=== PATIENT | male | born 1935 | race Caucasian/White ===

== ENCOUNTER → 2024-02-28 09:41 | Outpatient (REF) | payer OTHER, SELFPAY ==
[2024-02-28 11:08] LABS: ALT (SGPT) 19 U/L (0-50); AST (SGOT) 34 U/L (17-59); Albumin 4.1 g/dl (3.5-5.0); Alkaline Phosphatase 78 U/L (38-126); Blood Urea Nitrogen 35 mg/dl (9-20); Calcium 9.1 mg/dl (8.4-10.2); Carbon Dioxide 33 mmol/L (22-30); Chloride 100 mmol/L (98-107); Glucose 104 mg/dl (70-99); Sodium 141 mmol/L (135-145); Total Bilirubin 0.7 mg/dl (0.2-1.3); Total Protein 8.6 g/dl (6.3-8.2)
== END ==
LOC: REG 09:41
PROVIDERS: ATTENDING PHYSICIAN Family Medicine
DX: Z95.810 Presence of automatic (implantable) cardiac defibrillator (principal); I25.10 Atherosclerotic heart disease of native coronary artery without angina pectoris; I10 Essential (primary) hypertension
CPT/HCPCS: 36415; 80053

== ENCOUNTER → 2024-06-07 07:47 | Outpatient (REF) | payer OTHER, SELFPAY ==
[2024-06-07 09:00] LABS: % Basophils 0.5 % (0-2); % Eosinophils 3.6 % (0-6); % Immature Granulocytes 0.2 % (0-0.5); % Monocytes 7.7 % (1.7-9.3); Absolute Eosinophils 0.2 10^3/uL (0-0.7); Absolute Lymphocytes 1.2 10^3/uL (1.2-3.4); Absolute Monocytes 0.5 10^3/uL (0.1-0.6); Absolute Neutrophils 3.9 10^3/uL (1.4-6.5); Hematocrit 42.8 % (39.0-52.0); Hemoglobin 13.9 g/dL (13.0-18.0); Mean Corp Hgb Conc. 32.5 g/dL (33.0-37.0); Mean Corpuscular Hgb 31.1 pg (27.0-31.0); Mean Corpuscular Volume 95.7 fL (80.0-94.0); Mean Platelet Volume 9.8 fL (7.4-10.4); Nucleated Red Blood Cells % 0 % (-); Platelet Count 206 10^3/uL (130-400); Red Blood Cell Count 4.47 10^6/uL (4.70-6.10); Red Cell Dist. Width 12.6 % (11.5-14.5); White Blood Cell Count 5.8 10^3/uL (4.8-10.8)
[2024-06-07 09:23] LABS: Albumin 4.1 g/dl (3.5-5.0); Blood Urea Nitrogen 39 mg/dl (9-20); Calcium 9.3 mg/dl (8.4-10.2); Carbon Dioxide 34 mmol/L (22-30); Chloride 101 mmol/L (98-107); Glucose 95 mg/dl (70-99); Phosphorus 3.5 mg/dl (2.5-4.5); Potassium 4.3 mmol/L (3.5-5.1); Sodium 143 mmol/L (135-145); eGFR > 60.00
[2024-06-07 09:57] LABS: TSH Reflex To Free T4 1.81 uIU/ml (0.47-4.68)
== END ==
LOC: REG 07:47
PROVIDERS: ATTENDING PHYSICIAN Internal Medicine Cardiovascular Disease; FAMILY PHYSICIAN Family Medicine
DX: I48.0 Paroxysmal atrial fibrillation (principal); R09.89 Other specified symptoms and signs involving the circulatory and respiratory systems; R63.4 Abnormal weight loss; R63.0 Anorexia
CPT/HCPCS: 36415; 80069; 84443; 85025

== ENCOUNTER → 2024-06-10 13:02 | Outpatient (REF) | payer OTHER, SELFPAY | LOC: RAD 13:02 | PROVIDERS: ATTENDING PHYSICIAN Internal Medicine Cardiovascular Disease; FAMILY PHYSICIAN Family Medicine | DX: I48.0 Paroxysmal atrial fibrillation (principal); R09.89 Other specified symptoms and signs involving the circulatory and respiratory systems; R63.4 Abnormal weight loss; R63.0 Anorexia | CPT/HCPCS: 74177; Q9967 ==

== ENCOUNTER 2024-07-09 09:50 | Inpatient (IN) | payer OTHER, SELFPAY ==
[2024-07-03 10:50] LABS: INR 1.14; PT 14.6 Sec (11.4-14.6)
[2024-07-03 10:51] LABS: APTT 34.8 Sec (23.4-35.0)
[2024-07-03 11:18] LABS: % Basophils 0.5 % (0-2); % Eosinophils 2.8 % (0-6); % Immature Granulocytes 0.5 % (0-0.5); % Lymphocytes 18.5 % (20.5-51.1); % Monocytes 7.8 % (1.7-9.3); % Neutrophils 69.9 % (42.2-75.2); Absolute Eosinophils 0.2 10^3/uL (0-0.7); Absolute Lymphocytes 1.2 10^3/uL (1.2-3.4); Absolute Monocytes 0.5 10^3/uL (0.1-0.6); Absolute Neutrophils 4.5 10^3/uL (1.4-6.5); Hematocrit 43.6 % (39.0-52.0); Hemoglobin 14.1 g/dL (13.0-18.0); Mean Corp Hgb Conc. 32.3 g/dL (33.0-37.0); Mean Corpuscular Hgb 30.8 pg (27.0-31.0); Mean Corpuscular Volume 95.2 fL (80.0-94.0); Mean Platelet Volume 9.8 fL (7.4-10.4); Nucleated Red Blood Cells % 0 % (-); Platelet Count 203 10^3/uL (130-400); Red Blood Cell Count 4.58 10^6/uL (4.70-6.10); Red Cell Dist. Width 12.3 % (11.5-14.5); White Blood Cell Count 6.4 10^3/uL (4.8-10.8)
[2024-07-04 10:32] VITALS: BMI 18.1
[2024-07-04 11:11] LABS: Blood Urea Nitrogen 40 mg/dl (9-20); Carbon Dioxide 38 mmol/L (22-30); Chloride 96 mmol/L (98-107); Estimated Creatinine Clearance 35 ml/min; Glucose 98 mg/dl (70-99); Potassium 4.7 mmol/L (3.5-5.1); Sodium 141 mmol/L (135-145); eGFR 58.89
[2024-07-09] VITALS (9 sets, daily range): BP systolic 95–125; BP diastolic 37–65; BMI 18.0
[2024-07-09] MEDS: BACTROBAN NASAL 1 GRAM NASAL (10:44)
[2024-07-09] MEDS: NSS 500 IV (10:45)
[2024-07-09] MEDS: PERIDEX 0.12% ORAL RINSE 15 ML PO (10:45)
[2024-07-09 10:46] LABS: Glucose - Point of Care 88 mg/dl (70-99)
--- NOTE | 2024-07-09 13:00 | W.SUR.PREOP ---
Pre-Operative Surgical Note
-
I have examined this patient prior to the performance of the scheduled procedure.
The patient's condition is unchanged from the time of the current History and
Physical and the patient is able to undergo the scheduled procedure.
--- NOTE | 2024-07-09 16:25 | W.SUR.POST ---
Surgical Immediate Post Op
Note
Pre Op Diagnosis: AAA
Post Op Diagnosis: AAA
Procedure Performed: EVAR (alto)
Primary Surgeon: Artis
Assist: Owen MENDIOLA
Anesthesia: general
Estimated Blood Loss: 50cc
Fluids: see anesthesia flow sheet
Drains/Shunts: none
Specimens/Cultures: none
Doppler/Duplex/Angio (Y/N): Y
Complications: none
Operative Findings: No endoleak
--- NOTE | 2024-07-09 16:45 | OR.RPT ---
Operative Report
Operative Report
PROCEDURE DATE: 07/09/2024
Preoperative diagnosis: 5.8 cm infrarenal abdominal aortic aneurysm.
Postoperative diagnosis: Same
Procedure:
1. Endovascular repair of infrarenal abdominal aortic aneurysm with bifurcated modular endoprosthesis with bilateral iliac limb extension (Endologix [place] 23 mm main body, right iliac limb 10 mm x 160 mm extension, left iliac limb overlapping 16mm
by 100 mm and 16 mm x 80 mm extensions).
2. Percutaneous bilateral common femoral artery closure.
3. Supervision and interpretation.
Surgeon: Artis
Tube Handler: Owen, required for all aspects of procedure including assistance with traction/countertraction, wire manipulation and assistance.
Complications: None
Anesthesia: General
Indications for procedure:
5.8 cm large infrarenal abdominal aortic aneurysm. Suitable anatomy for endovascular aneurysm repair. Risk/benefits/alternatives also discussed. Patient understood all wish to proceed.
Description of procedure:
Patient was identified brought to the operating room placed on the table in supine position. After the adequate administration of anesthesia and perioperative antibiotics he was prepped and draped in the standard surgical fashion. A standard
preoperative timeout was undertaken and everybody was in agreement the plan. Bilateral common femoral artery access was obtained under direct duplex ultrasound guidance. 6 [place] sheaths were placed over 0.035 inch wires. Notes because of slight
difficulty and wire advancement in both sides, especially right side, I had performed retrograde angiogram through the sheath (micropuncture sheath) to confirm no evidence of dissection prior to 6 [place] sheath advancement. Blunt dissection was
undertaken with hemostats to facilitate percutaneous suture delivery. Next, using the PerClose suture system, percutaneous sutures were deployed at the 10:00 and 2 o'clock position bilaterally in the standard fashion. Suture strands were tagged
outside the skin. We exchanged for 11 [place] sheaths bilaterally. Patient was given 5000 units of intravenous heparin. Next using a [place] catheter, I guided wires into the supraceliac aorta from bilateral access sites. On the right side, pigtail
catheter was advanced into the juxtarenal aorta and aortogram pelvic angiogram was obtained. Gil were made to identify the bilateral renal arteries on the screen. On the left side I now exchanged for a AmwareerDogSpot wire through which the
Endologix [place] main body graft was advanced ([id number]). Device was advanced until the implant radiopaque markers were about 1 cm proximal to the intended landing site. Note, the device had been loaded such that the contralateral gate would be
intentionally crossed based on the wire lay (and therefore when loaded on the wire, the device delivery system was loaded with the green facing laterally). Next we unsheathed by retracting the delivery system outer sheath until the sheath
retraction knob met the handle. The first segment (mid crown) was then deployed by releasing the for stent release knob and pulling the wire. 5 cc of 4-1 saline to contrast was injected through the balloon port to inflate the mid crown segment.
The balloon was then deflated. I then confirmed that there was no parallax by aligning the top radiopaque markers. Magnified power injection aortogram was again performed and renal artery positioning was again marked on the screen. I then moved
the graft downward such that the fabric was to line up with the inferior edge of the renal artery origin (the left renal artery was the lower renal artery). The pigtail catheter was then withdrawn downward. The remainder of the proximal stent was
then deployed by releasing the second knob and pulling the wire out. Next, the polymer was prepared. Once this was ready, the [place] Was then removed and the polymer syringe was secured onto the port. The autoinjection was then locked onto
the syringe and the feeling of the polymer began. The timer was started for 14 minutes. During this time, using a flap angled hydrophilic wire through the right sided sheath access, and using a angled catheter (Magalie 4), I was able to cannulate
the contralateral gate successfully and then advance my wire into the supraceliac aorta. I then advanced a pigtail catheter through. I then pulled the wire back and confirmed the catheter was able to spin and the main body the graft and above the
main body of the graft confirming that I was in the true lumen of the contralateral gate. As noted earlier the contralateral limbs had been crossed intentionally for deployment. 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
(confirmed both on CT scan and angiography), we had elected to extend our iliac limb down into the external iliac artery. Therefore I did not need to perform any additional angiography/measurement. I now exchanged for a Amplatz wire.
Prior to advancing the contralateral limb, I turned my attention to the proximal polymer rings as the 14 minutes had elapsed. The third release knob was turned and the wire withdrawn to complete deployment. The retraction knob was withdrawn
slightly to disengage the delivery system from the stent graft, and then was advanced forward. It was advanced such that the markers on the balloon were centered around the proximal rings. I then balloon molded the ring segment into place.
I then loaded the 10 mm x 160 mm iliac limb extension ([id number]) onto the Amplatz wire through the right sided 11 [place] sheath. This was advanced such that the proximal markers aligned with the proximal half ring of the graft. Next I
retracted the sheath to deploy the iliac limb. Satisfied with the positioning, I turned my attention to the ipsilateral limb. The delivery system was withdrawn out of the left groin and I advanced up a 16 x 100 mm iliac limb extension
([id number]). This was appropriately positioned such that the proximal markers were aligned with the proximal half ring of the graft. It was now in sheath. Of note prior to unsheathed thing it and advancing this all up, the retrograde angiogram
was performed and the hypogastric/iliac bifurcation were marked on the screen. Care was taken to avoid covering these when deploying the stent graft. The iliac limb was noted to be slightly short by a couple centimeters of the iliac bifurcation.
At this point, we used 12 mm angioplasty balloons to simultaneously balloon bilateral iliac limbs proximally, and then withdrawing them and ballooning the entirety of the iliac limbs as we did so. Completion angiogram now was performed with power
injection via a pigtail catheter. This demonstrated good positioning proximally with good filling of the renal arteries bilaterally. No evidence of type I or type III endoleak was noted. There is a late type II endoleak from the lumbars. There
was no evidence of a type Ib endoleak, however our seal zone in the left common iliac artery was relatively short. Therefore I elected to extend using a 16 mm x 80 mm iliac limb extension ([id number]). This was extended to just short of the iliac
bifurcation. The iliac bifurcation had been marked on the screen, and care was taken avoid coverage. Retrograde angiogram through the sheath demonstrated good filling of both the external and the internal iliac artery.
Next I exchanged my pigtail catheter back for a Amplatz wire. Next, I sequentially removed the sheath while cinching down the percutaneous sutures. This was initially done on the right side and then on the left. Once hemostasis was noted the wire
was then withdrawn, the knot was tightened with a knot pusher. Hemostasis was confirmed. The knot was then locked and the suture strands trimmed. This was done as noted on the right initially and then on the left. Protamine was given to reverse
the heparin. Hemostasis was fully achieved bilateral groins with good femoral pulses bilaterally. The small skin incisions were then closed with 4-0 Monocryl subcuticular stitch and Dermabond was applied. Patient tolerated procedure well. He had
palpable DP and PT pulses bilaterally upon completion.
--- NOTE | 2024-07-09 16:50 | CON.INTV ---
Consultation
Consultation Request
Date/Time Consultation Requested: 07/09/2024
Date/Time Consultation Performed: 07/09/2024 - 1620
Requesting Provider: MAURY Carroll
Performing Provider: Luis Alberto Chun MD
Reason for Consultation: s/p EVAR
Medical History
-
Chief Complaint: Elective EVAR
History of Present Illness:
88-year-old male former tobacco smoker with a past medical history of COPD, chronic HFrEF/ICM with history of VT s/p dual-chamber ICD, paroxysmal A-fib on Eliquis, CAD s/p ID, history of LV thrombus, history hematuria, ophthalmic herpes zoster, BPH,
history of skin cancer s/p Mohs procedure, migraine headaches and restrictive lung defect who presents with endovascular abdominal aortic aneurysm repair. Patient has a known infrarenal abdominal aortic aneurysm that is 5.8 cm largest seen on
recent CT abdomen/pelvis from 06/10/2024. He is known to vascular surgery with Dr. Wisdom, last office visit on 06/17/2024. Endovascular repair of his AAA was discussed including its risks and benefits. Patient agreed to procedure and today he
underwent endovascular repair of infrarenal abdominal aortic aneurysm with bifurcated modular endoprosthesis with bilateral iliac limb extension. There were no immediate complications and he was transferred to the ICU for further care, with
critical care services consulted for additional management/recommendations.
Patient was seen and evaluated at bedside. Patient's and daughter at bedside. All questions were answered. Currently on 2 L/min nasal cannula saturating 90%, heart rate 79, BP via right radial A-line 130/50, BP via NIBP: 114/55. He has no
specific complaints. Denies chest pain, SOB, SERRA, abdominal pain, nausea, diarrhea, fevers or chills.
Of note, patient follows with us in the [facility] office with Dr. Sanchez, last office visit on 04/02/2024. Patient follows with us for COPD on Stiolto Respimat with prn DuoNebs, with 2 L/min at bedtime. He had been on ICS in the past but then developed
thrush. Also has chronic rhinitis on Flonase, azelastine and was advised to use nasal saline spray. ENT evaluation recommended however he declined. He has completed cardiac rehab in the past given his history of chronic systolic heart failure.
He follows with Dr. Sr. He does report chronic shortness of breath without phlegm production. 6MWT performed during last office visit shows aristides SpO2 96% and no need for home oxygen. Last full PFT performed in October 2021 showing severe
COPD with significant bronchodilator response, mild restrictive lung defect (T%), and severely reduced gas exchange capacity which was moderately reduced when accounting for alveolar volume involving gas exchange (DLco: 26%; DLco/VA: 45%).
Last perimetry performed in April 2023 showed very severe COPD with post-BD FEV1: 28% predicted/0.7 L, and severe restrictive lung defect with post-BD FVC: 42% predicted/1.53 L.
PMHx: COPD, mild restrictive lung defect, history of skin cancer, BPH, diverticulosis, migraine headaches, history of VT s/p [id number], chronic HFrEF/ICM, paroxysmal A-fib on Eliquis, CAD s/p ID (1983), dyslipidemia, history of LV thrombus
(Dx in 08/2016), ophthalmic herpes zoster, gout, history of hematuria, chronic urinary retention with chronic Gee
PSHx: Sinus surgery, Mohs surgery, AICD implantation, bilateral cataract extractions, repair of right tarsal eyelid (2001), coronary cath, cystoscopy with clot evacuation with resection of prostate median lobe (2016)
Past Medical History
Past Medical History: Other (Above as per HPI)
Past Surgical History: Other (Above as per HPI)
Social History
Tobacco: Former Smoker (Quit in 2003; previously 0.5PPD x 50 years)
Alcohol: None
Drug: None
Personal:
Living: With Family
Family History
Family History: CAD (Father + mother) and Other (Mother: History of CHF)
Allergies / Home Medications
Allergies
Allergy/AdvReac Type Severity Reaction Status Date / Time
Sulfa (Sulfonamide Allergy Nausea Verified 07/02/24 09:04
Antibiotics)
Home Medications
�Medication �Instructions �Recorded �Confirmed �Last Taken �Type
albuterol sulfate 2.5 mg/3 mL 2.5 mg inhalation R BID 03/07/18 07/09/24 07/09/24 06:00 History
(0.083 %) solution for nebulization Lung/Breathing Issues
ascorbic acid (vitamin C) 500 mg 1,000 mg PO DAILY Supplement 03/07/18 07/09/24 07/08/24 06:00 History
tablet (Vitamin C)
dutasteride 0.5 mg capsule 0.5 mg PO DAILY Urinary Issue 03/07/18 07/09/24 07/08/24 06:00 History
peg 400-propylene glycol (PF) 0.4 1 drp BOTH EYES TID Eye Condition 03/07/18 07/09/24 07/08/24 06:00 History
%-0.3 % eye drops in a dropperette
(Systane (PF))
tiotropium 2.5 mcg-olodaterol 2.5 1 puff inhalation R DAILY PRN 03/07/18 07/09/24 07/08/24 12:00 History
mcg/actuation mist for inhalation Lung/Breathing Issues
(Stiolto Respimat)
simvastatin 40 mg tablet 40 mg PO QPM ##30 04/05/18 07/09/24 07/08/24 18:00 Rx
metoprolol succinate 50 mg 25 mg PO QPM Blood Pressure 10/06/19 07/09/24 07/08/24 18:00 History
tablet,extended release 24 hr
echinacea 400 mg capsule 400 mg PO DAILY Supplement 06/22/23 07/09/24 07/08/24 06:00 History
fluticasone propionate 50 1 spray intranasal DAILY PRN 06/22/23 07/09/24 07/08/24 12:00 History
mcg/actuation nasal Allergies
spray,suspension
apixaban 2.5 mg tablet (Eliquis) 2.5 mg PO BID #60 tabs 06/25/23 07/09/24 07/02/24 18:00 Rx
dofetilide 250 mcg capsule 250 mcg PO Q12 #60 caps 06/25/23 07/09/24 07/08/24 18:00 Rx
furosemide 40 mg tablet 40 mg PO DAILY #30 tabs 06/25/23 07/09/24 07/08/24 06:00 Rx
aspirin 81 mg capsule 81 mg PO DAILY 07/02/24 07/09/24 07/08/24 06:00 History
lactobacillus combination no.4 3 3,000 mmu cells PO QPM 07/02/24 07/09/24 07/08/24 16:30 History
billion cell capsule (Probiotic)
polyethylene glycol 3350 17 gram 17 g PO DAILY 07/02/24 07/09/24 07/08/24 06:00 History
oral powder packet (Miralax)
Review of Systems
-
History Source: Patient
All other systems: Negative unless noted
Vitals / Labs / Diagnostic Testing
Vital Signs
Temp Pulse Resp BP Pulse Ox
97.2 F 74 20 124/62 99
07/09/24 16:45 07/09/24 17:45 07/09/24 17:45 07/09/24 17:45 07/09/24 17:45
Lab Data
07/09/24 17:06
07/09/24 17:06
Diagnostic Testing:
Physical Exam
-
HEENT: Normocephalic, Anicteric and Other (Conjunctival injection bilaterally)
Cardiovascular: Irregular Rhythm (Irregularly irregular) and Other (Normal heart rate)
Respiratory: Wheeze (negative), Rales (negative), Rhonchi (negative), Accessory Resp Muscle Use (negative) and Other (Grossly diminished breath sounds bilaterally)
GI: Soft, Non Distended, Non Tender and Normal Bowel Sounds
Neurology: AO x 3 and Tremors (negative)
Skin: Warm and Dry
General: Respiratory Distress (negative), Comfortable, Fever (negative), Chills (negative), Sweats (negative) and Other (Elderly male, in NAD, chronic gee in place)
Assessment
-
Assessment: 88-year-old male former tobacco smoker with a past medical history of COPD, chronic HFrEF/ICM with history of VT s/p dual-chamber ICD, paroxysmal A-fib on Eliquis, CAD s/p ID, history of LV thrombus, history hematuria, ophthalmic herpes
zoster, BPH, history of skin cancer s/p Mohs procedure, migraine headaches and restrictive lung defect who presents with endovascular abdominal aortic aneurysm repair. Patient has a known infrarenal abdominal aortic aneurysm that is 5.8 cm largest
seen on recent CT abdomen/pelvis from 06/10/2024. He is known to vascular surgery with Dr. Wisdom, last office visit on 06/17/2024. Endovascular repair of his AAA was discussed including its risks and benefits. Patient agreed to procedure and today he
underwent endovascular repair of infrarenal abdominal aortic aneurysm with bifurcated modular endoprosthesis with bilateral iliac limb extension. There were no immediate complications and he was transferred to the ICU for further care, with
critical care services consulted for additional management/recommendations.
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
of LV thrombus (Dx in 08/2016), ophthalmic herpes zoster, gout, history of hematuria
Impression:
#5.8 cm infrarenal abdominal aortic aneurysm s/p endovascular repair (EVAR) with bifurcated modular endoprosthesis with bilateral iliac limb extension (POD #0)
#Anemia (baseline Hb 13-14g/dL)
#Very severe COPD (post-BD FEV1: 28% predicted/0.7 L via spirometry from 04/2023)
#Severe restrictive lung defect (post-BD FVC: 42% predicted/1.53 L via spirometry from 04/2023)
#History of recurrent UTI
#Chronic HFrEF/ICM s/p dual-chamber ICD
#History of VT
#Paroxysmal A-fib on Eliquis
#CAD with history of ID (1983)
#History of LV thrombus
#Chronic urinary retention with chronic indwelling urethral catheter (follows with Dr. Lira as outpatient, declined TURP in past due to cardiac risk)
Plan:
Postoperative surgical intensive care unit monitoring
Supplemental oxygen as needed to maintain SpO2 88-95%
prn nebulized bronchodilators
He takes Stiolto at home --> continue spiriva and Striverdi while inpatient
Incentive spirometry encouraged 10x per hour for at least 4 hrs a day
Aspiration precautions
Pain control
Neuro and vascular checks per protocol
Maintain MAP>65
Replete electrolytes with K>4, Mg>2
Maintain euglycemia with goal BG 140-180
Vascular surgery following-correspondence and operative notes reviewed
Transfuse blood products as needed to keep Hb>7g/dL, and plt>50k (given post-operative status)
DVT prophylaxis
Early nutrition
Continue chronic Gee � last changed by Dr. Lira in office on 06/18/2024
Early mobilization
Patient will continue to follow-up with our office - last pulmonary office visit on 04/02/2024 Dr. Sanchez - next visit in 09/2024.
Critical care statement: A total of 37 minutes of critical care time was provided for this patient today. This includes management of unstable vital signs, evaluation of the patient at bedside, reviewing the patient's pertinent medical records
including radiographs, microbiology, laboratory evaluations, and discussion with primary team, consultants, pharmacy, nutrition, physical therapy, case management, charge nurse, critical care nursing, and respiratory therapy.
[2024-07-09] MEDS: NSS 1000 IV ×2 (17:16→22:30)
[2024-07-09 17:19] LABS: Hematocrit 36.5 % (39.0-52.0); Hemoglobin 12.2 g/dL (13.0-18.0); Mean Corp Hgb Conc. 33.4 g/dL (33.0-37.0); Mean Corpuscular Hgb 31.4 pg (27.0-31.0); Mean Corpuscular Volume 94.1 fL (80.0-94.0); Mean Platelet Volume 9.2 fL (7.4-10.4); Platelet Count 162 10^3/uL (130-400); Red Blood Cell Count 3.88 10^6/uL (4.70-6.10); Red Cell Dist. Width 12.3 % (11.5-14.5); White Blood Cell Count 8.7 10^3/uL (4.8-10.8)
--- NOTE | 2024-07-09 17:20 | SUR.PHASEI ---
Dr. Wisdom notified pt with B/L feet with dusky toes upon PACU admission. Dr. Wisdom at pt bedside to evaluate, Danny rogel ordered to B/L lower extremities and applied to pt as ordered.
[2024-07-09 17:38] LABS: Blood Urea Nitrogen 32 mg/dl (9-20); Calcium 8.3 mg/dl (8.4-10.2); Carbon Dioxide 30 mmol/L (22-30); Chloride 104 mmol/L (98-107); Estimated Creatinine Clearance 46 ml/min; Glucose 105 mg/dl (70-99); Potassium 4.6 mmol/L (3.5-5.1); Sodium 143 mmol/L (135-145); eGFR > 60.00
--- NOTE | 2024-07-09 18:34 | PTCARENOTE ---
Addendum entered by Shawna Yao RN 07/09/24 19:22:
Pt's daughter upon seeing discoloration of pt's bilateral feet/toes stated 'Oh, that looks better than what it did before'
Original Note:
Pt received from PACU into Rm 3370 at 1755. Pt awake and alert, Ox3, denies c/o pain although reports 'little' discomfort in bilateral groin sites- rates 1/10. Bilateral groin soft and flat to palpation. Exofin intact. Bottom of both feet and tips
of toes noted to be dusky in color- unchanged in appearance and Dr Wisdom aware per CAR DELIVERER. Danny Hugger in use to bilateral LE. Bilateral DP/PT pulses normal to palpation. Feet warm to touch. Pt noted to have red rimmed eyes that per CAR DELIVERER pt
presented w/ at preop time. Pt received from PACU on O2 at 2l/min w/ POx 97%. Pt reports that he uses O2 at 2l/min overnight at home. Breath sounds diminished and clear bilaterally. Denies SOB. Abdomen soft, flat and w/ normoactive bowel sounds. Pt
denies nausea and taking sips of water. Pt received w/ Rt radial Martin in place- leveled/zero balanced and transduced waveform WNL. IVF of NS @ 80ml/hr per order via peripheral IV site. Pt assisted in ordering dinner tray. Family to visit at
bedside- and daughter updated on pt's present condition/plan of care. Admission assessment completed as documented. Orientation provided to pt on surroundings and use of call vidales. Safe environment maintained.
[2024-07-09] MEDS: VENTOLIN NEBULES 2.5 MG INH (19:59)
--- NOTE | 2024-07-09 20:00 | PTCARENOTE ---
Received patient AAOx3, following commands, denying pain. Normal sinus 70s-80s with a first degree and occasional PVCs. Right radial chen zeroed, flushed, and leveled. BP 100s/40s-50s, normothermic. Q1H neurovascular checks, palpable radial, DP,
and PT pulses. On 2 liters nasal cannula, lung sounds diminished throughout. Abdomen soft, flat, hypoactive bowel sounds. Chronic gee on admission, draining yellow urine. Feet dusky/purple, no change from previous assessment, bairhugger remains
on. Bilateral groin incision sites, surgiglue intact, approximated, no drainage or ecchymosis. NSS ongoing per order. Call vidales within reach, able to make needs known.
[2024-07-09] MEDS: TIKOSYN 250 MCG PO (20:21)
[2024-07-09] MEDS: REFRESH EYE DROPS (PF) BOTH EYES (20:21)
[2024-07-09] MEDS: VISBIOME 1 CAP PO (20:22)
[2024-07-09] MEDS: LIPITOR 20 MG PO (20:22)
[2024-07-09] MEDS: TOPROL XL 25 MG PO (20:22)
[2024-07-09] MEDS: HEPARIN 5000 UNITS SC (20:23)
[2024-07-09] MEDS: REFRESH EYE DROPS (PF) 1 DROPS BOTH EYES (22:02)
[2024-07-09] MEDS: NSS 250 IV (22:13)
[2024-07-10] VITALS (9 sets, daily range): BP systolic 84–120; BP diastolic 34–57; BMI 18.9
--- NOTE | 2024-07-10 00:20 | PTCARENOTE ---
Patients BP 80s-90s/30s-50s, CLOTH SPONGER aware and discussed with vascular. 250 ml NSS bolus given, BP improved to 100s/40s. Otherwise patient assessment unchanged from previous, call vidales within reach.
--- NOTE | 2024-07-10 05:12 | PTCARENOTE ---
Patient assessment unchanged from previous, mouth care done, gee care done, labs sent.
[2024-07-10 05:16] LABS: Hematocrit 35.3 % (39.0-52.0); Hemoglobin 11.5 g/dL (13.0-18.0); Mean Corp Hgb Conc. 32.6 g/dL (33.0-37.0); Mean Corpuscular Hgb 31.8 pg (27.0-31.0); Mean Corpuscular Volume 97.5 fL (80.0-94.0); Mean Platelet Volume 9.5 fL (7.4-10.4); Platelet Count 153 10^3/uL (130-400); Red Blood Cell Count 3.62 10^6/uL (4.70-6.10); Red Cell Dist. Width 12.2 % (11.5-14.5); White Blood Cell Count 6.2 10^3/uL (4.8-10.8)
[2024-07-10 05:26] LABS: INR 1.16; PT 14.9 Sec (11.4-14.6)
[2024-07-10 05:27] LABS: APTT 35.9 Sec (23.4-35.0)
[2024-07-10 05:37] LABS: Blood Urea Nitrogen 34 mg/dl (9-20); Carbon Dioxide 29 mmol/L (22-30); Chloride 108 mmol/L (98-107); Estimated Creatinine Clearance 48 ml/min; Glucose 130 mg/dl (70-99); Potassium 4.6 mmol/L (3.5-5.1); Sodium 143 mmol/L (135-145); eGFR > 60.00
[2024-07-10] MEDS: CALCIUM GLUCONATE 100 IV (06:24)
--- NOTE | 2024-07-10 07:21 | W.PN.VS ---
Addendum entered and electronically signed by Don Wisdom MD 07/10/24 09:22:
Seen and examined with AYAZ Alejo. Agree with findings as noted below. Patient without significant complaints. Abdomen soft, nondistended, nontender. Groins bilateral small incisions clean dry and intact, no hematoma. Feet warm with palpable DP
pulses bilaterally. Labs reviewed. Plan/as discussed and noted below.
Original Note:
Today's Communication / Plan
-
Patient seen and examined at bedside with Dr. Don Wisdom, below plan reviewed with attending
Assessment/Plan
-
Assessment: 88 year old male POD#1 EVAR
Plan:
Discontinue IV fluids
Discontinue arterial line
OOB to chair with progression to ambulation as tolerated
Can restart anticoagulation
Possible discharge later this afternoon pending progression
Subjective Data
-
Date of Service: July 10, 2024
Patient seen and examined at bedside, offers no complaints. Denies ABD pain, nausea, vomiting, fever, and chills. Reports tolerating PO diet.
Objective Data
-
Vital Signs
Temp Pulse Resp BP Pulse Ox
97.6 F 62 23 89/38 99
07/10/24 05:35 07/10/24 06:00 07/10/24 06:00 07/10/24 04:00 07/10/24 06:00
Intake and Output
07/09/24 07/10/24 07/11/24
06:59 06:59 06:59
Intake Total 1410 / 1410
Output Total 650 / 650
Balance 760 / 760
Intake:
IV fluids (Total) 1060 / 1060
Normosol 100 / 100
Nss 1,000 ml @ 80 mls/hr IV . 960 / 960
[id number] Rx#:[id number]
IV piggybacks 350 / 350
Output:
Urine, Gee 650 / 650
Lab Results
07/10/24 04:55
07/10/24 04:55
Calcium 8.0 mg/dl (8.4-10.2) L 07/10/24 04:55
Physical Exam
-
AAOx3, NAD
No tachycardia
No dyspnea on room air
ABD flat, non tender, non-distended
Chronic gee draining clear yellow urine
BL Dp +2 palpable
[2024-07-10] MEDS: LASIX 40 MG PO (08:04)
[2024-07-10] MEDS: VENTOLIN NEBULES 2.5 MG INH (08:06)
[2024-07-10] MEDS: TIKOSYN 250 MCG PO (08:08)
[2024-07-10] MEDS: REFRESH EYE DROPS (PF) 1 DROPS BOTH EYES ×2 (08:08→16:27)
[2024-07-10] MEDS: VITAMIN C 1000 MG PO (08:09)
[2024-07-10] MEDS: PROSCAR 5 MG PO (08:09)
[2024-07-10] MEDS: ASPIR LOW (ENTERIC COATED) 81 MG PO (08:10)
[2024-07-10] MEDS: MIRALAX 17 GRAMS PO (08:10)
[2024-07-10] MEDS: HEPARIN 5000 UNITS SC (08:10)
--- NOTE | 2024-07-10 08:41 | W.PN.INTV ---
Today's Communication / Plan
Recommendations
Up OOB as tolerated
Encourage incentive spirometer use 10x/hr for at least 4 hrs a day
Outpatient follow up with Dr. Wisdom
Outpatient follow up with Dr. Lira for gee catheter exchange
Patient to be set up for home O2 with 2L/min with exertion; advised to continue 2L/min with sleep; room air at rest --> home O2 testing done by bedside RN, showing resting room air SpO2: 90-92%; with exertion on room air his O2-saturation was
80-82%; with exertion when patient placed onto 2L/min, SpO2 aristides 92%
Patient will continue to follow-up with our office - last pulmonary office visit on 04/02/2024 Dr. Sanchez - we will arrange for next office appt in next 4-6 weeks for 6MWT and post-hospitalization office visit.
Patient being prepared for discharge home. Ground Equipment Mechanic/Pulmonary service will now sign off. Please re-consult if there are any additional questions/concerns, or if patient's respiratory status deteriorates.
Assessment
-
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
zoster, BPH, history of skin cancer s/p Mohs procedure, migraine headaches and restrictive lung defect who presents with endovascular abdominal aortic aneurysm repair. Patient has a known infrarenal abdominal aortic aneurysm that is 5.8 cm largest
seen on recent CT abdomen/pelvis from 06/10/2024. He is known to vascular surgery with Dr. Wisdom, last office visit on 06/17/2024. Endovascular repair of his AAA was discussed including its risks and benefits. Patient agreed to procedure and today he
underwent endovascular repair of infrarenal abdominal aortic aneurysm with bifurcated modular endoprosthesis with bilateral iliac limb extension. There were no immediate complications and he was transferred to the ICU for further care, with
critical care services consulted for additional management/recommendations.
Chronic conditions ORDER PICKER: COPD, mild restrictive lung defect, history of skin cancer, BPH, diverticulosis, migraine headaches, history of VT s/p [id number], chronic HFrEF/ICM, paroxysmal A-fib on Eliquis, CAD s/p DE (1983), dyslipidemia, history
of LV thrombus (Dx in 08/2016), ophthalmic herpes zoster, gout, history of hematuria
Impression:
#5.8 cm infrarenal abdominal aortic aneurysm s/p endovascular repair (EVAR) with bifurcated modular endoprosthesis with bilateral iliac limb extension (POD #1)
#Anemia (baseline Hb 13-14g/dL)
#Very severe COPD (post-BD FEV1: 28% predicted/0.7 L via spirometry from 04/2023)
#Nocturnal hypoxia on home O2 at 2 L/min with sleep
#Severe restrictive lung defect (post-BD FVC: 42% predicted/1.53 L via spirometry from 04/2023)
#History of recurrent UTI
#Chronic HFrEF/ICM s/p dual-chamber ICD
#History of VT
#Paroxysmal A-fib on Eliquis
#CAD with history of DE (1983)
#History of LV thrombus
#Chronic urinary retention with chronic indwelling urethral catheter (follows with Dr. Lira as outpatient, declined TURP in past due to cardiac risk)
Plan:
Postoperative surgical intensive care unit monitoring
Supplemental oxygen as needed to maintain SpO2 88-95%
- Bedside RN performed ambulatory pulse oximetry: at rest on room air, SpO2 90-92%; with exertion on room air his O2-saturation was 80-82%; with exertion when patient placed onto 2L/min, SpO2 aristides 92% --> patient will go home on 2L/min with
exertion, room air at rest; and advised to continue 2L/min with sleep. We will see him in the pulmonary office in next 4-6 weeks for re-evaluation of home O2 requirements and will do a 6MWT in office.
prn nebulized bronchodilators
He takes Stiolto at home --> continue spiriva and Striverdi while inpatient, resume Stiolto upon discharge
Incentive spirometry encouraged 10x per hour for at least 4 hrs a day
Aspiration precautions
Pain control
Neuro and vascular checks per protocol
Maintain MAP>65
Replete electrolytes with K>4, Mg>2
Maintain euglycemia with goal BG 140-180
Vascular surgery following-correspondence and operative notes reviewed
Transfuse blood products as needed to keep Hb>7g/dL, and plt>50k (given post-operative status)
DVT prophylaxis - resume Eliquis per vascular surgery
Early nutrition
Continue chronic Gee � last changed by Dr. Lira in office on 06/18/2024 --> advised to follow up with Dr. Lira in next 1-2 weeks for gee catheter exchange
Early mobilization
Patient will continue to follow-up with our office - last pulmonary office visit on 04/02/2024 Dr. Sanchez - we will arrange for next office appt in next 4-6 weeks for 6MWT and post-hospitalization office visit.
Patient being prepared for discharge home. Pulmonary service will now sign off. Thank you for allowing us to be involved in the care of this patient. Please reconsult if there are any additional questions/concerns, or if patient's respiratory
status deteriorates.
Total time spent today was 55 minutes for this encounter. Time includes reviewing laboratory test/imaging results, reviewing pertinent medical records, obtaining and reviewing medical history, performing an appropriate exam, ordering medications,
tests and procedures. Time also includes documentation of this encounter, coordinating patient care and communicating with other healthcare professionals. Total time does not include separately billed tests performed on this date of service.
Subjective Dataa
Subjective Data
Date of Service:
Date of Service: July 10, 2024
Chief Complaint: Ground Equipment Mechanic Follow Up
Subjective:
Patient seen & evaluated today at bedside - he feels well. Sitting in chair on room air saturating 89-92%. Heart rate 70, BP 104/57. With activity, his saturations dropped to 82% while on room air. Bedside RN walked the patient and with 2 L/min,
O2 saturations remained >88%. Patient being prepared to go home with home oxygen and should do 2 L/min with activity and sleep; room air at rest. Patient pulling 1250 cc from incentive spirometer. He denies CP, SOB with rest, SERRA, abdominal pain,
nausea, fevers or chills. Afebrile overnight.
Review of Systems
General: Other (Negative unless mentioned above)
Objective Data
Data Reviewed
Vital Signs / I&O / Oxygen:
Vital Signs
Temp Pulse Resp BP Pulse Ox
97.8 F 71 26 128/45 97
07/10/24 07:46 07/10/24 08:09 07/10/24 08:09 07/10/24 08:04 07/10/24 08:48
Intake and Output
07/09/24 07/10/24 07/11/24
06:59 06:59 06:59
Intake Total 1410 / 1490 330 / 330
Output Total 650 / 690 80 / 80
Balance 760 / 800 250 / 250
SaO2 97
Nasal Cannula flow liters per 2
minute
Physical Exam
General: Respiratory Distress (negative), Comfortable, Chills (negative), Sweats (negative) and Other (Chronic Gee catheter in place draining clear yellow urine)
HEENT: Normocephalic, Anicteric and Other (Conjunctival injection bilaterally)
Cardiovascular: Irregular Rhythm, Peripheral Edema (negative) and Other (Distant cardiac sounds)
Respiratory: Wheeze (negative), Crackles (negative), Rhonchi (negative), Non-Labored Respirations and Other (Grossly diminished breath sounds bilaterally)
GI: Soft, Non Distended, Non Tender and Normal Bowel Sounds
Neurology: AO x 3 and Tremors (negative)
Skin: Warm, Dry, Cyanosis (negative) and Jaundice (negative)
Labs/Micro/Reports
Lab Data
07/10/24 04:55
07/10/24 04:55
Laboratory Results
07/10/24
04:55
PT 14.9 H
INR 1.16
APTT 35.9 H
--- NOTE | 2024-07-10 09:05 | PTCARENOTE ---
Addendum entered by Frances Cuello RN 07/10/24 10:17:
correction, pt on R/A, O2 sat=97%
Original Note:
Complete assessment done this am and documented. Pt also seen on morning rounds by Dr Wisdom. Pt awake and oriented x3, CAPRICE reneeat. Pt is SR with occ PACs, R rad chen intact running approx 20-25 higher than cuff BP (size sm on L upper arm). R rad chen
zero'd. IV fluid NS d/c'd now. Bilat groins with surgi-glue intact, no redness or drainage noted. Pt received with heating blanket on lower exts, may be removed now as per Dr Wisdom. Bilat DP and PT pulses palp bilat. Feet warm, pale. Pt denies any
pain at this time. Pt on R/A, lobes clear, diminished at bases bilat. O2 sat=97%. Pt ate 100% of his cholesterol lowering breakfast, abd flat, +BSs. Pt has chronic indwelling gee cath, cath care done. Gee draining mod amt yellow urine. Call vidales
at side. Pt comfortable.
[2024-07-10] MEDS: ELIQUIS 2.5 MG PO (10:09)
--- NOTE | 2024-07-10 10:19 | PTCARENOTE ---
R rad A-line d/c'd. Feet remain pale to dusky in color, pt denies any pain in groins, legs, or feet. DPs and PTs remain palpable bilat. Routine breathing treatment was given. Pt encouraged, and is doing his incentive spirometer, reaching 750 TV. O2
sat 96-97% on 2l nc, lungs diminished at bases. Pt OOB to chair with 1 person assist, tolerating well. IVFs d/c'd. Assigned educational videos put on and pt watching now.
--- NOTE | 2024-07-10 11:02 | CM ---
Addendum entered by Mercedes Garcia 07/10/24 15:46:
Updated requirements for home O2 faxed to [facility]. Per liaison the delivery will be in approx 2 hours. Patient expressed concern and stated that his appointment had been cancelled for next week with Dr. Lira to change the cath. CM sent tt to
[facility] and updated Alodize Machine Operator and nursing/family that Dr. Lira wanted to have patient call his office to schedule appointment in the office for next week. CM will continue to follow for discharge planning needs.
Original Note:
Patient seen at bedside in ICU. Patient stated that he did not anticipate any needs at discharge and was happy to go home. patient stated that his 'bride' and daughter were coming to transport him home. IMM completed 07/09/24 and CM will continue to
follow for discharge planning needs.
Plan;home with no needs anticipated.
--- NOTE | 2024-07-10 14:42 | PTCARENOTE ---
Pt tolerated sitting in chair for 4 hrs, had formed brown BM in bathroom. Pt assisted with walker, last ironer, 2l O2 around ICU hallway. Pt tolerated well, O2 sat=92-94%. When pt sitting with 2l nc, O2 sat=97-98%. Pt then assisted with
walker, last ironer, R/A around ICU hallway. Pt getting slightly SOB, and O2 sat was 80-82% on R/A. With 2l NC applied, minimum O2 sat was 92% with activity. When pt at rest on R/A, O2 sat=88-94%. Dr Chun updated. Pt will be able to go home
today, however will need to wear his 2l O2 during the day with any activity, and con't with his usual 2l nc overnight. Pt and pt's were both updated, and pt understands and will comply. Mercedes, community mental health social worker made aware by Dr Clayton, and she
is contacting [facility] for continued O2 supply as needed.
--- NOTE | 2024-07-10 15:33 | W.DS.TRANS ---
DC Summary - Smoking Tobacco Packing Machine Hand
-
Discharge Instructions:
Discharge Diagnosis/Procedures Endovascular repair of infrarenal abdominal
aortic aneurysm with bifurcated modular
endoprosthesis with bilateral iliac limb
extension
Percutaneous bilateral common femoral artery
closure.
Diet As tolerated
Activity No strenuous activity
Driving Restrictions No driving for 1 week
Bathing Restrictions OK to Shower
Instructions:
Stand-Alone Forms: DC Instr - Vascular OR
Changes to Home Medications: No
Discharge Medications:
DC Medications w/original date entered in [employer]
albuterol sulfate 2.5 mg/3 mL (0.083 %) solution for nebulization 2.5 mg inhalation R BID Lung/Breathing Issues 03/07/18
ascorbic acid (vitamin C) 500 mg tablet (Vitamin C) 1,000 mg PO DAILY Supplement 03/07/18
dutasteride 0.5 mg capsule 0.5 mg PO DAILY Urinary Issue 03/07/18
peg 400-propylene glycol (PF) 0.4 %-0.3 % eye drops in a dropperette (Systane (PF)) 1 drp BOTH EYES TID Eye Condition 03/07/18
tiotropium 2.5 mcg-olodaterol 2.5 mcg/actuation mist for inhalation (Stiolto Respimat) 1 puff inhalation R DAILY PRN Lung/Breathing Issues 03/07/18
simvastatin 40 mg tablet 40 mg PO QPM ##30 04/05/18
metoprolol succinate 50 mg tablet,extended release 24 hr 25 mg PO QPM Blood Pressure 10/06/19
echinacea 400 mg capsule 400 mg PO DAILY Supplement 06/22/23
fluticasone propionate 50 mcg/actuation nasal spray,suspension 1 spray intranasal DAILY PRN Allergies 06/22/23
dofetilide 250 mcg capsule 250 mcg PO Q12 #60 caps 06/25/23
furosemide 40 mg tablet 40 mg PO DAILY #30 tabs 06/25/23
aspirin 81 mg capsule 81 mg PO DAILY Blood Clot Prevention/Tx 07/02/24
lactobacillus combination no.4 3 billion cell capsule (Probiotic) 3,000 mmu cells PO QPM Gastrointestinal Issue 07/02/24
polyethylene glycol 3350 17 gram oral powder packet (Miralax) 17 g PO DAILY Gastrointestinal Issue 07/02/24
apixaban 2.5 mg tablet (Eliquis) 2.5 mg PO BID Blood Clot Prevention/Tx 07/10/24
Home Medication Changes
Pending Results: No
--- NOTE | 2024-07-10 16:51 | PTCARENOTE ---
Pt cleared to discharged this evening by Dr Chun and Dr Wisdom. Awaiting home O2 oxygen from [employer], that say they will be here to deliver pt's O2 in an hour or two. Pt resting in bed, eating dinner. R/A sat dropped to 90%, 2l nc applied
while eating. O2 sat now 99% on 2l nc. Pt denies SOB. All pedal pulses remain palpable. R groin incs intact with surgi glue. Pt continues to do I/S, reaching 750-1000 TV.
[2024-07-10] MEDS: TOPROL XL 25 MG PO (17:55)
[2024-07-10] MEDS: LIPITOR 20 MG PO (17:55)
[2024-07-10] MEDS: VISBIOME 1 CAP PO (17:56)
--- NOTE | 2024-07-10 18:57 | PTCARENOTE ---
[employer] had brought a compressed air O2 tank. Discharge instructions printed and reviewed with pt and . Pt gee switched over to his leg bag. All INTs d/c'd. Pt brought to front door family car with O2 2l. Pt switched over to his take home tank.
All belongings with pt. VSS.
== END 2024-07-10 18:52 | disposition home or self-care (01) | DRG 269 ==
LOC: ICU 09:50
PROVIDERS: Nurse Practitioner; ADMITTING PHYSICIAN Surgery Vascular Surgery; CONSULT PHYSICIAN Internal Medicine Critical Care Medicine; FAMILY PHYSICIAN Family Medicine
PROC: 04V03EZ Restriction of Abdominal Aorta with Branched or Fenestrated Intraluminal Device, One or Two Arteries, Percutaneous Approach (ICD-10-PCS; 2024-07-09)
DX: I71.43 Infrarenal abdominal aortic aneurysm, without rupture (principal); I13.0 Hypertensive heart and chronic kidney disease with heart failure and stage 1 through stage 4 chronic kidney disease, or unspecified chronic kidney disease; I50.22 Chronic systolic (congestive) heart failure; J44.9 Chronic obstructive pulmonary disease, unspecified; D64.9 Anemia, unspecified; N18.30 Chronic kidney disease, stage 3 unspecified; E78.5 Hyperlipidemia, unspecified; I25.10 Atherosclerotic heart disease of native coronary artery without angina pectoris; I25.2 Old myocardial infarction; I48.0 Paroxysmal atrial fibrillation; I25.5 Ischemic cardiomyopathy; J31.0 Chronic rhinitis; N40.1 Benign prostatic hyperplasia with lower urinary tract symptoms; R33.8 Other retention of urine; G43.909 Migraine, unspecified, not intractable, without status migrainosus; M10.9 Gout, unspecified; Z79.01 Long term (current) use of anticoagulants; Z79.82 Long term (current) use of aspirin; Z79.899 Other long term (current) drug therapy; Z86.79 Personal history of other diseases of the circulatory system; Z95.810 Presence of automatic (implantable) cardiac defibrillator; Z85.828 Personal history of other malignant neoplasm of skin; Z87.440 Personal history of urinary (tract) infections; Z87.891 Personal history of nicotine dependence; Z86.19 Personal history of other infectious and parasitic diseases; Z87.19 Personal history of other diseases of the digestive system; Z88.2 Allergy status to sulfonamides; Z82.49 Family history of ischemic heart disease and other diseases of the circulatory system
CPT/HCPCS: 34705; 34709; 36415; 71046; 80048; 82962; 85025; 85027; 85610; 85730; 86850; 86900; 86901; 87070; 94640; C1725; C1760; C1769; C1887; C1892; C1894; C2628; Q9967

== ENCOUNTER 2024-07-13 10:41 | Emergency (ER) | payer OTHER, SELFPAY ==
[2024-07-13 10:42] VITALS: BP 113/80
[2024-07-13 12:15] VITALS: BP 121/65; BMI 19.2
--- NOTE | 2024-07-13 12:56 | ED.GENMED ---
History of Present Illness
General
Chief Complaint: Fall
Source: patient, spouse and family
Exam Limitations: none
Time Seen by Provider: 07/13/24 11:19
Nursing documentation reviewed up to this point in time: agreed with
History of Present Illness
History of Present Illness:
88-year-old male past medical history of A-fib currently on Eliquis, heart disease presenting to the emergency department after he fell from a broken chair hitting the back of his head scraping the back of his head. Denies loss of consciousness
numbness weakness or additional concerns. He has been to ambulate.
Past History
Past History
ED Past Medical History: Arrthythmia (Ventricular tachycardia), CAD, Cancer, CHF (Cardiomyopathy with EF of 20%), Hypercholesterolemia, PR and Other (BPH, basal cell skin cancer)
ED Past Surgical History: Other (Defibrillator, eye surgery, dental surgery, skin cancer removal)
Social History
Tobacco: Former smoker
Alcohol: None
Drug: None
Personal:
Living: with family
Employment: Retired
Family History
Family History: Other
Review of Systems
Review of Systems
Allergies reviewed?: Yes
All Other Systems: ROS reviewed and negative except as documented in HPI and ROS
Phy Exam
Physical Exam
Physical Exam:
GENERAL: Alert , in no apparent distress
EYE: pupils equal and reactive
NECK: Supple, no significant adenopathy.
ENT: o/p clr, mmm.
CARDIAC: Regular rate and rhythm .
LUNGS: Clear breath sounds bilaterally, no acute respiratory distress, no wheezes/rales/rhonchi
ABDOMEN: Soft, without focal tenderness, no r/g, no cvat
NEUROLOGICAL: Alert and oriented, no focal neuro deficits
SKIN: 2 cm laceration to the posterior scalp on the occipital region very superficial no foreign body seen very clean in appearance warm and dry, skin intact.
MUSCULOSKELETAL: No edema, well perfused.
PSYCH: Normal and appropriate interaction.
Course
Orders/Labs/Results
Orders:
Orders
07/13/24 10:49
CT Head W/o Iv Contrast Urgent
Reason For Exam: fall on thinners
07/13/24 11:29
Tetanus/Diphth/Acelpertussis [Adacel] 0.5 ml IM .ONCE ONE
Vital Signs
Initial and Last Documented VS:
Initial Vital Signs
Temp Pulse Resp BP Pulse Ox
97.5 F 56 18 113/80 93
07/13/24 10:42 07/13/24 10:42 07/13/24 10:42 07/13/24 10:42 07/13/24 10:42
Last Documented Vital Signs
Temp Pulse Resp BP Pulse Ox
97.5 F 70 18 121/65 95
07/13/24 10:42 07/13/24 13:18 07/13/24 13:18 07/13/24 13:18 07/13/24 13:18
Procedures
Laceration Closure
Posterior Scalp:
Status of Wound: clean
Size of Wound in cm: 2.5
Description of Wound Edges: sharp
Preparation: cleaned with saline
Revision/Debridement: routine- no revision and irrigate-direct pressure
Wound exploration: explored to base- no FB and no tendon involvement
Type of Closure: Dermabond-skin glue
Additional information:
Hair apposition technique
MDM/Problems Addressed
MDM/Problems Addressed:
88-year-old male presenting to the emergency department after mechanical fall hitting the back of his head. CT scan without emergent findings patient did have a 2.5 cm laceration to the occipital scalp this was cleaned thoroughly and closed with
the hair apposition technique and Dermabond. Patient tolerated well otherwise stable for discharge he was given an updated tetanus shot return precautions given.
*Critical Care Note
Total Time (30-74mins, 75-104mins- exclusive of procedures): Not Applicable
ED Attending Note
-
Portions of this chart may have been created with voice recognition software.� Occasional wrong word or��sound alike� substitutions may have occurred due to the inherent limitations of voice recognition software.
Discharge Plan
Departure
Patient Disposition: Home (Routine Discharge)
Date of Disposition: 07/13/24
Time of Disposition: 12:56
Patient with high blood pressure during this ER visit?: No
Condition: Good
Covid-19: Not Applicable
Discharge Problem:
Laceration of scalp
Instructions: Laceration Repair With Glue (DC)
Prescriptions:
No Action
dutasteride 0.5 MG capsule
0.5 mg PO DAILY
albuterol sulfate 2.5 MG/3 ML solution for nebulization
2.5 mg inhalation R BID
Systane (PF) 1 EACH dropperette
1 drp BOTH EYES TID
ascorbic acid (vitamin C) [Vitamin C] 500 MG tablet
1,000 mg PO DAILY
Stiolto Respimat 4 GM mist
1 puff inhalation R DAILY PRN (Reason: Lung/Breathing Issues)
Patient Comments:
simvastatin 40 MG tablet
40 mg PO QPM Qty: 30 5RF
metoprolol succinate 50 MG tablet extended release 24 hr
25 mg PO QPM
echinacea 400 mg Capsule
400 mg PO DAILY
fluticasone propionate 50 mcg/actuation [place],Suspension
1 spray INTRANASAL DAILY PRN (Reason: Allergies)
dofetilide 250 mcg Capsule
250 mcg PO Q12 Qty: 60 0RF
furosemide 40 mg tablet
40 mg PO DAILY Qty: 30 0RF
polyethylene glycol 3350 [Miralax] 17 gram Powder In Packet
17 g PO DAILY
Probiotic 3 billion cell Capsule
3,000 mmu cells PO QPM
aspirin 81 mg Capsule
81 mg PO DAILY
Eliquis 2.5 mg tablet
2.5 mg PO BID
Referrals:
Kelli Wallace MD [Family Provider] -
Activity Restrictions/Additional Instructions:
You came to the emergency department today with concerns of a scalp laceration. You had a head CT which was normal. The laceration was closed the hair apposition technique including Dermabond. The Dermabond should fall off in the next week or so.
Return to the emergency department any worsening, new or concerning symptoms.
Interventions
Interventions:
*Risk Screen - Suicide Last Done: 07/13/24 12:15
*General Assessment Last Done: 07/13/24 12:15
*Neglect/Abuse Screening Last Done: 07/13/24 12:15
ED- Fall Risk Assessment Last Done: 07/13/24 12:15
*ED COVID-19 Vaccine History Last Done: 07/13/24 12:15
*Nursing Disposition Last Done: 07/13/24 13:18
ED-Musculoskeletal Assessment Last Done: 07/13/24 12:15
ED- Neurological Assessment Last Done: 07/13/24 12:15
ED-Skin Assessment Last Done: 07/13/24 12:15
Discharge Date and Time
Discharge Date/Time: 07/13/24 13:15
Print Language: BULGARIAN
[2024-07-13] MEDS: ADACEL 0.5 ML IM (12:57)
--- NOTE | 2024-07-13 13:16 | EDRN ---
Reviewed discharge instructions with patient. Verbalized understanding. Taken to lobby in wheelchair.
[2024-07-13 13:18] VITALS: BP 121/65
== END 2024-07-13 13:15 | disposition home or self-care (01) ==
LOC: EMR 10:41
PROVIDERS: EMERGENCY PHYSICIAN Student in an Organized Health Care Education/Training Program; FAMILY PHYSICIAN Family Medicine
DX: S01.01XA Laceration without foreign body of scalp, initial encounter (principal); W07.XXXA Fall from chair, initial encounter; Z23 Encounter for immunization; I48.91 Unspecified atrial fibrillation; I51.9 Heart disease, unspecified; I25.10 Atherosclerotic heart disease of native coronary artery without angina pectoris; I50.9 Heart failure, unspecified; I42.9 Cardiomyopathy, unspecified; E78.00 Pure hypercholesterolemia, unspecified; I25.2 Old myocardial infarction; N40.0 Benign prostatic hyperplasia without lower urinary tract symptoms; Z79.01 Long term (current) use of anticoagulants; Z85.828 Personal history of other malignant neoplasm of skin; Z87.891 Personal history of nicotine dependence
CPT/HCPCS: 99284; 12001; 90471; 70450; 90715

== ENCOUNTER → 2024-07-23 11:45 | Outpatient (REF) | payer OTHER, SELFPAY ==
[2024-07-23 13:20] LABS: Blood Urea Nitrogen 33 mg/dl (9-20); Carbon Dioxide 34 mmol/L (22-30); Chloride 96 mmol/L (98-107); Glucose 94 mg/dl (70-99); Potassium 5.1 mmol/L (3.5-5.1); Sodium 141 mmol/L (135-145); eGFR > 60.00
== END ==
LOC: REG 11:45
PROVIDERS: ATTENDING PHYSICIAN Physician Assistant; FAMILY PHYSICIAN Family Medicine
DX: I71.43 Infrarenal abdominal aortic aneurysm, without rupture (principal)
CPT/HCPCS: 36415; 80048

== ENCOUNTER → 2024-08-19 08:41 | Outpatient (REF) | payer OTHER, SELFPAY | LOC: RAD 08:41 | PROVIDERS: ATTENDING PHYSICIAN Physician Assistant; FAMILY PHYSICIAN Family Medicine | DX: I71.43 Infrarenal abdominal aortic aneurysm, without rupture (principal) | CPT/HCPCS: 74174; Q9967 ==

== ENCOUNTER → 2024-09-01 10:05 | Outpatient (REF) | payer OTHER, SELFPAY | LOC: RAD 10:05 | PROVIDERS: ATTENDING PHYSICIAN Family Medicine | DX: R68.81 Early satiety (principal); R63.4 Abnormal weight loss | CPT/HCPCS: 74246 ==

== ENCOUNTER → 2024-10-06 08:29 | Outpatient (REF) | payer OTHER, SELFPAY | LOC: RAD 08:29 | PROVIDERS: ATTENDING PHYSICIAN Family Medicine | DX: K86.2 Cyst of pancreas (principal); K21.9 Gastro-esophageal reflux disease without esophagitis | CPT/HCPCS: 76700 ==

== ENCOUNTER → 2025-02-25 08:02 | Outpatient (REF) | payer OTHER, SELFPAY ==
[2025-02-25 09:43] LABS: % Basophils 0.4 % (0-2); % Immature Granulocytes 0.4 % (0-0.5); % Monocytes 6.3 % (1.7-9.3); % Neutrophils 73.9 % (42.2-75.2); Absolute Eosinophils 0.1 10^3/uL (0-0.7); Absolute Lymphocytes 1.2 10^3/uL (1.2-3.4); Absolute Monocytes 0.5 10^3/uL (0.1-0.6); Absolute Neutrophils 5.3 10^3/uL (1.4-6.5); Hemoglobin 14.2 g/dL (13.0-18.0); Mean Corp Hgb Conc. 32.3 g/dL (33.0-37.0); Mean Corpuscular Hgb 31.1 pg (27.0-31.0); Mean Corpuscular Volume 96.3 fL (80.0-94.0); Mean Platelet Volume 9.8 fL (7.4-10.4); Nucleated Red Blood Cells % 0 % (-); Platelet Count 180 10^3/uL (130-400); Red Blood Cell Count 4.57 10^6/uL (4.70-6.10); Red Cell Dist. Width 12.4 % (11.5-14.5); White Blood Cell Count 7.2 10^3/uL (4.8-10.8)
[2025-02-25 09:45] LABS: ALT (SGPT) 19 U/L (0-50); AST (SGOT) 34 U/L (17-59); Albumin 3.8 g/dl (3.5-5.0); Alkaline Phosphatase 78 U/L (38-126); Blood Urea Nitrogen 33 mg/dl (9-20); Calcium 9.2 mg/dl (8.4-10.2); Carbon Dioxide 36 mmol/L (22-30); Chloride 99 mmol/L (98-107); Glucose 94 mg/dl (70-99); HDL Cholesterol 51 mg/dl; LDL Cholesterol, Calculated 62 mg/dl; Potassium 4.8 mmol/L (3.5-5.1); Sodium 142 mmol/L (135-145); Total Bilirubin 0.9 mg/dl (0.2-1.3); Total Cholesterol 130 mg/dl (50-199); Total Protein 8.5 g/dl (6.3-8.2); Triglyceride 89 mg/dl (10-149); Very Low Density Lipoprotein 17 mg/dl (0-30); eGFR 58.53
== END ==
LOC: REG 08:02
PROVIDERS: ATTENDING PHYSICIAN Family Medicine
DX: I25.5 Ischemic cardiomyopathy (principal); I25.10 Atherosclerotic heart disease of native coronary artery without angina pectoris; J44.9 Chronic obstructive pulmonary disease, unspecified; I48.0 Paroxysmal atrial fibrillation
CPT/HCPCS: 36415; 80053; 80061; 85025

== ENCOUNTER → 2025-03-05 09:00 | Outpatient (REF) | payer OTHER, SELFPAY | LOC: DHVS 09:00 | PROVIDERS: ATTENDING PHYSICIAN Surgery Vascular Surgery; FAMILY PHYSICIAN Family Medicine | DX: I71.43 Infrarenal abdominal aortic aneurysm, without rupture (principal) | CPT/HCPCS: 76770 ==

== ENCOUNTER 2025-05-20 16:12 | Inpatient (IN) | payer OTHER, SELFPAY ==
[2025-05-20] VITALS (7 sets, daily range): BP systolic 106–123; BP diastolic 46–71; BMI 17.1; BMI 16.4
--- NOTE | 2025-05-20 08:49 | ED.GENMED ---
History of Present Illness
General
Chief Complaint: Weakness
Source: patient and family
Exam Limitations: none
Time Seen by Provider: 05/20/25 08:34
Nursing documentation reviewed up to this point in time: agreed with
History of Present Illness
History of Present Illness:
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 Patient reports abdominal pain started last night. Pain is intermittent. He did move his bowel yesterday. He does report he is
urinating and emptying his Gee normally.
He reports he last ate yesterday around 12:00 and had a bologna sandwich with a banana but has not eaten since then. He reports pain is mostly in his lower abdomen and is intermittent.
He reports ever since aneurysm repair he has been losing weight.
Past History
Past History
ED Past Medical History: Arrthythmia (Ventricular tachycardia), CAD, Cancer, CHF (Cardiomyopathy with EF of 20%), Hypercholesterolemia, [place] and Other (BPH, basal cell skin cancer)
ED Past Surgical History: Other (Defibrillator, eye surgery, dental surgery, skin cancer removal)
Social History
Tobacco: Former smoker
Alcohol: None
Drug: None
Personal:
Living: with family
Employment: Retired
Family History
Family History: Other
Phy Exam
General Physical Exam
General Presentation: no apparent distress
General age: appears stated age
General Skin: warm and dry
General Habitus: cachetic and elderly
General Mental: alert
General Hydration: dry mucous membranes
Cardiovascular Exam
Cardiovascular Exam: regular rate/rhythm, no murmur and normal peripheral pulses
Pulmonary Exam
Pulmonary Exam: no respiratory distress and other (Bilateral crackles at bases)
Gastrointestinal Exam
Gastrointestinal Exam: soft and other (Mild lower abdominal tenderness)
Neurological Exam
Neurological Exam: alert and oriented x3
Musculoskeletal Exam
Musculoskeletal Exam: full ROM
Skin Exam
Skin Exam: normal color and warm/dry
Psychiatric Exam
Psychiatric Exam: normal mood/affect
Course
Orders/Labs/Results
Orders:
Orders
05/20/25 08:53
Iohexol [Omnipaque] See Protocol PO NOW STA
Ondansetron Injectable [Zofran] 4 mg IV NOW STA
05/20/25 08:54
CT Abd/pel W Iv And Oral Contr Urgent
Comment:
Reason For Exam: lower abd pain /nausea
05/20/25 08:55
Electrocardiogram (*1) Stat
Reason for Study: Other
Other Reason for Exam: chest pain
Cardiac Monitoring- Treatment ONCE
EKG- Treatment ONCE
05/20/25 09:06
Complete Blood Count/With Diff Urgent
Comprehensive Metabolic Panel Urgent
Lipase Urgent
05/20/25 09:11
Gee Placement- Treatment ONCE
Reason for insertion: Chronic Gee on Admit
05/20/25 09:37
0.9% Sodium Chloride 500 ml [Nss] 500 ml IV BOLUS
05/20/25 09:51
Lidocaine 2% [Lidocaine Uro-Jet 2%] 1 syringe .ROUTE .STK-MED ONE
05/20/25 09:52
Lidocaine 2% [Lidocaine Uro-Jet 2%] 1 syringe TOPICAL NOW STA
05/20/25 10:10
Urinalysis Reflex To Culture Urgent
Date Specimen was Collected: 05/20/25
Time Specimen was Collected: 10:08
Urine Microscopic Reflex Cult Urgent
Urine Culture Urgent
MAVERICK Source: U
Specimen Description:
Date Specimen was Collected: 05/20/25
Time Specimen was Collected: 10:08
Abnormal Lab Results
05/20/25 05/20/25
09:06 10:10
RBC 4.47 L 10^6/uL
(4.70-6.10)
MCV 96.2 H fL
(80.0-94.0)
MCHC 32.1 L g/dL
(33.0-37.0)
Absolute Neuts (auto) 8.5 H 10^3/uL
(1.4-6.5)
Absolute Lymphs (auto) 0.5 L 10^3/uL
(1.2-3.4)
Neutrophils % 87.8 H %
(42.2-75.2)
Lymphocytes % 5.2 L %
(20.5-51.1)
Carbon Dioxide 34 H mmol/L
(22-30)
BUN 28 H mg/dl
(9-20)
Glucose 112 H mg/dl
(70-99)
Total Bilirubin 3.1 H mg/dl
(0.2-1.3)
AST 336 H U/L
(17-59)
ALT 200 H U/L
(0-50)
Alkaline Phosphatase 192 H U/L
(38-126)
Total Protein 8.3 H g/dl
(6.3-8.2)
Ur Occult Blood Reflex 4+ A
(Negative)
Urine Nitrite (Reflex) Positive A
(Negative)
Leukocyte Esterase Rfl 3+ A
(Negative)
Urine RBC 26-30 A /HPF
(0-2)
Urine WBC (Reflex) >100 A /HPF
(0-5)
Urine Bacteria (Reflex) Moderate A
(Negative)
Urine Albumin (Reflex) 1+ A
(Neg - Trace)
05/20/25 09:06
05/20/25 09:06
Vital Signs
Initial and Last Documented VS:
Initial Vital Signs
Temp Pulse Resp BP Pulse Ox
98.0 F 72 16 106/46 96
05/20/25 08:27 05/20/25 08:27 05/20/25 08:27 05/20/25 08:27 05/20/25 08:27
Last Documented Vital Signs
Temp Pulse Resp BP Pulse Ox
97.6 F 79 24 123/71 98
05/20/25 08:56 05/20/25 11:00 05/20/25 11:00 05/20/25 11:00 05/20/25 11:13
MDM/Problems Addressed
Differential Diagnosis Includes:
not limited to: Diverticulitis dehydration UTI electrolyte abnormality
MDM/Problems Addressed:
As documented patient complains of intermittent nausea decreased weight weakness.
Patient without fevers. He does have a history of chronic indwelling Gee. He presents awake alert no acute distress mild lower abdominal tenderness.. Patient is afebrile with normal white count stable hemoglobin he is dehydrated with a BUN of
28 was given fluids creatinine 1.1. Patient's bilirubin is elevated 3.1 with elevated liver functions. CAT scan shows sigmoid diverticulosis no intestinal obstruction or free air patient does have gallstones, with fatigue weakness nausea abdominal
pain elevated LFTs but admit.
Patient has chronic indwelling Gee we will hold off on treatment at this time
Chronic conditions affecting care:
gee , aneurysm repair
*Radiology
Radiology exam reviewed: radiology read reviewed
*Pulse Oximetry
SaO2: 96
Oxygen Mode of Delivery: Room air
Patient hypoxic: no
*Critical Care Note
Total Time (30-74mins, 75-104mins- exclusive of procedures): Not Applicable
Data Reviewed
Review of Other/Old Records Reveals: Labs and Discharge Summary
Source: patient
ED Attending Note
-
Portions of this chart may have been created with voice recognition software.� Occasional wrong word or��sound alike� substitutions may have occurred due to the inherent limitations of voice recognition software.
Discharge Plan
Departure
Patient Disposition: Admit
Date of Disposition: 05/20/25
Time of Disposition: 14:06
Admit to: Med/Surg
Admit to doctor: hospitalist
Presentation/result/management discussed w/ accepting MD/DO: Hospitalist
Patient with high blood pressure during this ER visit?: No
Condition: Fair
Covid-19: Not Applicable
Discharge Problem:
Weakness, Elevated LFTs, Nausea
Prescriptions:
No Action
dutasteride 0.5 MG capsule
0.5 mg PO DAILY
albuterol sulfate 2.5 MG/3 ML solution for nebulization
2.5 mg inhalation R BID
Systane (PF) 1 EACH dropperette
1 drp BOTH EYES TID
ascorbic acid (vitamin C) [Vitamin C] 500 MG tablet
1,000 mg PO DAILY
Stiolto Respimat 4 GM mist
1 puff inhalation R DAILY PRN (Reason: Lung/Breathing Issues)
Patient Comments:
simvastatin 40 MG tablet
40 mg PO QPM Qty: 30 5RF
metoprolol succinate 50 MG tablet extended release 24 hr
25 mg PO QPM
echinacea 400 mg Capsule
400 mg PO DAILY
fluticasone propionate 50 mcg/actuation [place],Suspension
1 spray INTRANASAL DAILY PRN (Reason: Allergies)
dofetilide 250 mcg Capsule
250 mcg PO Q12 Qty: 60 0RF
furosemide 40 mg tablet
40 mg PO DAILY Qty: 30 0RF
polyethylene glycol 3350 [Miralax] 17 gram Powder In Packet
17 g PO DAILY
Probiotic 3 billion cell Capsule
3,000 mmu cells PO QPM
aspirin 81 mg Capsule
81 mg PO DAILY
Eliquis 2.5 mg tablet
2.5 mg PO BID
Referrals:
WallaceKelli Phan MD [Family Provider, Family Practice]
Interventions
Interventions:
*Risk Screen - Suicide Last Done: 05/20/25 08:27
*General Assessment Last Done: 05/20/25 10:45
*Neglect/Abuse Screening Last Done: 05/20/25 08:27
*ED- Fall Risk Assessment Last Done: 05/20/25 10:45
*ED COVID-19 Vaccine History Last Done: 05/20/25 10:44
ED- Cardiac Assessment Last Done: 05/20/25 10:47
ED- Neurological Assessment Last Done: 05/20/25 10:47
ED- Pulmonary Assessment Last Done: 05/20/25 10:47
Discharge Date and Time
Print Language: SPANISH
[2025-05-20 09:15] LABS: Hematocrit 43.0 % (39.0-52.0); Hemoglobin 13.8 g/dL (13.0-18.0); Mean Corp Hgb Conc. 32.1 g/dL (33.0-37.0); Mean Corpuscular Volume 96.2 fL (80.0-94.0); Nucleated Red Blood Cells % 0 % (-); Platelet Count 157 10^3/uL (130-400); Red Cell Dist. Width 12.3 % (11.5-14.5)
[2025-05-20 09:32] LABS: ALT (SGPT) 200 U/L (0-50); AST (SGOT) 336 U/L (17-59); Albumin 3.8 g/dl (3.5-5.0); Alkaline Phosphatase 192 U/L (38-126); Blood Urea Nitrogen 28 mg/dl (9-20); Calcium 8.8 mg/dl (8.4-10.2); Carbon Dioxide 34 mmol/L (22-30); Chloride 100 mmol/L (98-107); Estimated Creatinine Clearance 36 ml/min; Glucose 112 mg/dl (70-99); Potassium 5.1 mmol/L (3.5-5.1); Sodium 140 mmol/L (135-145); Total Protein 8.3 g/dl (6.3-8.2); eGFR > 60.00
[2025-05-20] MEDS: OMNIPAQUE 50 ML PO (09:38)
[2025-05-20] MEDS: NSS 500 IV (09:44)
[2025-05-20] MEDS: LIDOCAINE URO-JET 2% 1 SYRINGE TOPICAL (09:52)
[2025-05-20 10:01] LABS: Lipase 230 U/L (23-300)
[2025-05-20 10:24] LABS: Urine Character Cloudy (Clear)
[2025-05-20 10:49] LABS: Urine Urothelial Cell 0-2 /LPF (FEW)
[2025-05-20 10:52] LABS: Urine Red Blood Cell 26-30 /HPF (0-2)
[2025-05-20 10:53] LABS: Urine White Cell >100 /HPF (0-5)
--- NOTE | 2025-05-20 18:30 | HPS.HSE ---
Addendum entered and electronically signed by Ricardo Arzate MD 05/20/25 22:03:
Attending Addendum-
I performed a history and physical exam of the patient and discussed his management with the resident. I reviewed the resident's note and agree with the documented findings and plan of care CC/HPI- Presents to ED due to weight loss fatigue and
ambulatory dysfunction. Per patient has lost @ 100lbs over last year. Seen with and daughter present. Patient admits to poor appetite. States he has been having intermittent abd pain in epigastric and RUQ. Currently feels improved. Has nausea
no vomiting. States he has difficulty swallowing. Denies fevers chills urinary sxs diarrhea. Full 12 point ROS reviewed and negative except as documented Exam- vitals reviewed in EMR GEN-cachectic appears heart RRR no MRG Lungs fine crackles at
bases abd soft ND ND pos BS no rebound guarding LE no edema Skin dry Neuro AAO x 3
Plan:
# Weight Loss/PCM
- unclear etiology
- concerning for malignancy
- encourage PO
- hold lasix
- c/s GI for eval
# Transaminitis
- Abd CT-Sigmoid diverticulosis. No intestinal obstruction or free air.
-Aortoiliac stent graft is again seen with excluded sac similar in size to most recent prior CT. Suspected Type II endoleak seen on prior angiographic CT study August 19, 2024 cannot be assessed
-Simple left renal cysts.
-Subcentimeter low-attenuation right renal lesion too small to characterize.
-Cholelithiasis
- cont to trend
- check RUQ US
- possibly due to passed stone
- c/s GI for eval
#Chronic Hypercarbic Hypoxemic Respiratory Failure/COPD
- not in AE
- @ baseline 02 requirement
- cont nebs
- cont to monitor
#Dehydration
- hold lasix
- avoid IVF for now
#PAD
- h/o infra renal aortoiliac stent
# HFrEF
- not in AE, has ICD
- echo 06/2023- ef @ 22%
- hold lasix
- strict I and O daily weights
-
# Paroxysmal A fib
- cont Eliquis dofetilide and metoprolol
- has pacer
- monitor on tele
# Dysphagia
- speech eval
- C/S GI
# CKD 3a
- avoid nephrotoxic agents
-follow BMP
# Urinary retention from BPH
- cont Katz care
- asymptomatic bacteruria - likely Katz contaminated specimen
- hold off on abx fo now
# HLD
- hold simvastatin
CODE- DNR
DVT-p- eliquis
ACP
Patient consented to discuss, was with and daughter, time spent explanation of advance directives, changes in health status, patient�s health care wishes if the patient becomes unable to make health decisions, goals of care, code status, and
prognosis 'I dont want all that but i wanna figure out whats going on!'- 16 minutes
Time spent coordinating care, review of plan of care with resident, personally reviewed previous records in EMR, med rec, labs, radiology, d/w nursing, family total time documented is exclusive of any additional time listed that was spent in advance
care planning discussion -� 77 minutes
Original Note:
Family Physician
-
Family Physician: Kelli Wallace
Chief Complaint
-
89yrs M arrived to ED with concerns of weakness, fatigue, upper belly pain.
History of Present Illness
89 yrs M past medical h/o COPD, CHF, Chronic indwelling Foleys catheter arrived to ED today morning concerns about Fatigue, upper abdominal pain from yesterday afternoon after his meal. He took tylenol and felt better. The pain was intermittent in
nature and radiating towards to lower abdomen after sometime. He denied nausea, vomiting, dysuria, cough, fever, chills. He was concerns for dysphagia for the past 2 yrs.
ED course: Bilirubin - 3.1 mg/dl (H), AST, ALT level elevated. CT Abdomen W iv and oral contrast done. He was started on Zofran 4 MG IV stat.
Medical History
Past Medical History
Past Medical History: Reports Arrhythmia (AFib ), CAD, CHF, COPD, HTN and Hypercholesterolemia
Additional Past Medical History:
Infrarenal Abdominal Aortic Aneurysm repair done on 2023 , BPH
Past Surgical History: Reports Other
Additional Past Surgical History:
TURBT- 2017, Pace maker/ AICD- 2013; Cardiac catheter- 2018
Social History
Tobacco: Other (Ex smoker)
Alcohol: None
Drug: None
Personal:
Living: With Family (with )
Family History
Family History: Not pertinent
Allergies / Home Medications
Allergies reflects when Allergies were last updated in [email or web address].
Home Medications with original date entered in [email or web address]
Allergy/Medication List:
Allergies
Allergy/AdvReac Type Severity Reaction Status Date / Time
Sulfa (Sulfonamide Allergy Nausea Verified 05/20/25 17:35
Antibiotics)
Home Medications
ascorbic acid (vitamin C) 500 mg tablet (Vitamin C) 500 mg PO DAILY Supplement 03/07/18
dutasteride 0.5 mg capsule 0.5 mg PO DAILY Urinary Issue 03/07/18
simvastatin 40 mg tablet 40 mg PO QPM ##30 04/05/18
echinacea 400 mg capsule 400 mg PO DAILY Supplement 06/22/23
furosemide 40 mg tablet 40 mg PO DAILY #30 tabs 06/25/23
polyethylene glycol 3350 17 gram oral powder packet (Miralax) 17 g PO DAILY Gastrointestinal Issue 07/02/24
apixaban 2.5 mg tablet (Eliquis) 2.5 mg PO BID Blood Clot Prevention/Tx 07/10/24
Lactobac no.2-Bifidobac no.1-S. thermo 112.5 billion cell capsule (Visbiome) 1 cap PO QPM 05/20/25
acetaminophen 500 mg tablet (Tylenol Extra Strength) 500 - 1,000 mg PO DAILYPRN PRN mild pain 05/20/25
albuterol sulfate 90 mcg/actuation aerosol inhaler 2 puff inhalation R TIDPRN PRN sob 05/20/25
dofetilide 250 mcg capsule 250 mcg PO BID 05/20/25
ipratropium 0.5 mg-albuterol 3 mg (2.5 mg base)/3 mL nebulization soln 3 ml inhalation R TID 05/20/25
metoprolol succinate 25 mg tablet,extended release 24 hr 25 mg PO QPM 05/20/25
peg 400-propylene glycol (PF) 0.4 %-0.3 % eye drops in a dropperette (Systane (PF)) 1 drp BOTH EYES DAILY 05/20/25
Review of Systems
-
History Source: Patient
Constitutional: Reports Weight Loss and Fatigue
EENT: Reports Other (dysphagia for more than 2 yrs)
Abdomen/GI: Reports Abdominal Pain (right lower abdomen ) and Anorexia
: Reports No Symptoms and Katz
Musculoskeletal: Reports No Symptoms
Skin: Reports No Symptoms
Neurological: Reports No Symptoms
Endocrine: Reports No Symptoms
Hematologic/Lymphatic: Reports No Symptoms
Psych: Reports Calm
Physical Exam
Vital Signs
Vital Signs
Temp Pulse Resp BP Pulse Ox
97.5 F 93 26 116/55 97
05/20/25 17:51 05/20/25 17:51 05/20/25 17:51 05/20/25 17:51 05/20/25 17:58
Physical Exam
General: Respiratory Distress and Cachectic
HEENT: Oxygen (2 L Oxygen with 96% SaO2 )
Respiratory: Crackles
Cardiac: S1/S2 and Regular Rhythm
GI: Other (tenderness at right lower abdomen)
Genito-urinary: Katz (straw yellow)
Skin: Warm
Neuro: AO x 3
Hematologic/Lymphatic: No Lymphadenopathy
Psych: Calm
Laboratory Results
-
05/20/25 09:06
05/20/25 09:06
Laboratory Results
Total Bilirubin 3.1 mg/dl (0.2-1.3) H 05/20/25 09:06
AST 336 U/L (17-59) H 05/20/25 09:06
ALT 200 U/L (0-50) H 05/20/25 09:06
Alkaline Phosphatase 192 U/L (38-126) H 05/20/25 09:06
Lipase 230 U/L (23-300) 05/20/25 09:06
CT W IV AND ORAL CONTRAST IMPRESSION:
Sigmoid diverticulosis. No intestinal obstruction or free air.
Aortobiiliac stent graft is again seen with excluded sac similar in size to most recent prior CT. Suspected Type II endoleak seen on prior angiographic CT study August 19, 2024 cannot be assessed on this non-angiographic study.
Simple left renal cysts.
Subcentimeter low-attenuation right renal lesion too small to characterize.
Cholelithiasis again suspected.
Katz catheter within urinary bladder with a few expected tiny bubbles of air.
Impression/Plan
-
ASSESSMENT AND PLAN:
#Cholelithiasis vs choledocholithiasis
#Transaminitis
#Hyperbilirubinemia
AST 336 (H), ALT 200 (H) on admission
Total Bilirubin 3 mg/dl
Tylenol PRN
Consult Gastrology for dysphagia
Ultrasound Abdomen ordered to confirm the cause for abdominal pain.
# CT W IV AND ORAL CONTRAST IMPRESSION:
Sigmoid diverticulosis. No intestinal obstruction or free air.
Cholelithiasis +
# COPD:
continue 2L oxygen NC
Continue Ipratropium- albuterol
Albuterol 2 puff.
# Urinary Incontinence:
# Katz catheter+
# Asymptomatic UTI
# Urine Leukocyte Esterase +
#Urine WBC reflex >100 +
# Urine Bacteria reflex> moderate positive
# Cardiomyopathy:
Left Ventricular EF:20-25% ECHO done on 09/26/2019
Hold Lasix 40 mg today
Continue Eliquis 2.5 mg, Metoprolol 25 mg, Simvastatin 40mg
# Afib:
Continue Dofetilide 250 mcg BID
# BPH:
Continue Dutasteride 0.5mg
[2025-05-20] MEDS: DUONEB 3 ML INH (19:21)
[2025-05-20] MEDS: TIKOSYN 250 MCG PO (19:47)
[2025-05-20] MEDS: ELIQUIS 2.5 MG PO (19:47)
[2025-05-21] VITALS (7 sets, daily range): BP systolic 103–132; BP diastolic 50–102; BMI 16.2
[2025-05-21 07:22] LABS: Hematocrit 38.5 % (39.0-52.0); Hemoglobin 12.7 g/dL (13.0-18.0); Mean Corp Hgb Conc. 33.0 g/dL (33.0-37.0); Mean Corpuscular Volume 96.7 fL (80.0-94.0); Nucleated Red Blood Cells % 0 % (-); Platelet Count 147 10^3/uL (130-400); Red Cell Dist. Width 12.2 % (11.5-14.5)
[2025-05-21] MEDS: DUONEB 3 ML INH ×3 (07:24→19:19)
[2025-05-21 07:47] LABS: ALT (SGPT) 144 U/L (0-50); AST (SGOT) 171 U/L (17-59); Albumin 3.3 g/dl (3.5-5.0); Alkaline Phosphatase 183 U/L (38-126); Blood Urea Nitrogen 32 mg/dl (9-20); Calcium 8.5 mg/dl (8.4-10.2); Carbon Dioxide 35 mmol/L (22-30); Chloride 101 mmol/L (98-107); Estimated Creatinine Clearance 38 ml/min; Glucose 78 mg/dl (70-99); Potassium 4.5 mmol/L (3.5-5.1); Sodium 139 mmol/L (135-145); Total Protein 7.4 g/dl (6.3-8.2); eGFR > 60.00
[2025-05-21] MEDS: TIKOSYN 250 MCG PO ×2 (08:45→20:33)
[2025-05-21] MEDS: REFRESH EYE DROPS (PF) 1 DROPS BOTH EYES (08:46)
[2025-05-21] MEDS: ELIQUIS 2.5 MG PO ×2 (08:46→20:33)
[2025-05-21] MEDS: PROSCAR 5 MG PO (08:46)
--- NOTE | 2025-05-21 10:55 | CON.GI ---
Addendum entered and electronically signed by Shelley Wei DO 05/21/25 14:47:
The patient was seen and examined by me independently in collaboration with the nurse practitioner.
Past medical history/social history/medications/allergies/family history reviewed.
Lab data and imaging data reviewed.
Briefly, Wan is a 89 y.o. male with past medical history of COPD on home O2, AAA s/p endovascular repair (2023), chronic indwelling gee catheter, Afib, Ischemic cardiomyopathy, HFrEF, Hx VT s/p ICD/pacemaker, Hx LV thrombus, hx of cecal TVA with
HGD (2006), hx pancreatic cyst admitted with anorexia, weight loss and abdominal pain found to have elevated LFTs and cholelithiasis.
Nausea and abdominal pain have since resolved, admits to improvement with passing gas and stool. Reportws pain was present in LLQ, RUQ and RLQ of abdomen. He reports progressive weight loss of over 100 lbs in the last year. Admits to early satiety,
no real abdominal pain. UGI series in 08/2024 showed significant reflux to the level of the thoracic inlet. The esophagus, stomach and examined duodenum appeared normal.
History of cecal TVA w/ HGD, colonoscopy x 2 following resection, last in [address] Riddle.
Prior cross-sectional imaging comments on a 1.7 cm pancreatic head cyst, recommending MRI/MRCP to further evaluate, however, patient states unable to get an MRI due to his pacemaker/defibrillator.
LFTs on admission:
Tbili 3.1 --> 1.7
AST 336 --> 171
ALT 200 --> 144
Alk phos 192 --> 183
LFTs 02/25/25: Tbili 0.9, AST 34, ALT 19, Alk phos 78
Ideally, MRI would be performed, however, unable to obtain. Abdominal US pending. Difficult to discern if abdominal pain is 2/2 symptomatic cholelithiasis and biliary colic causing his early satiety and weight loss vs. undelrying malignancy vs.
cardiac cachexia vs. chronic constipation w/ large stoool burden. His pain improved with passing flatus and defecation and location of pain more consistent with gas related pain.
Plan:
-f/u Abdominal US, given improvement in LFTs, suspect he passed a stone
-Depending on ultimate goals of care given his age and comorbidities, would recommend follow-up with Dr. Pearce to discuss outpatient EUS for pancreatic cyst/can assess CBD for evidence of sludge/stones
Addendum entered and electronically signed by MAURY Ingram 05/21/25 12:35:
PT to be seen by Che Wei, DO not diana Foreman MD
Original Note:
Consultation
-
Date/Time Consultation Requested: 05/21/25 0730
Date/Time Consultation Performed: 05/21/25 1100
Requesting Provider: Efra Mendoza MD
Performing Provider: MAURY Rowe, Diana Foreman MD
Reason for Consultation: wt loss, dysphagia, increased LFT's
Medical History
Chief Complaint / HPI
Chief Complaint: abdominal pain
History of Present Illness:
Pt is an 89yo presents with afib on Eliquis, CAD, ischemic CM hx Vtach with ICD/pacer, prior CO, CHF, COPD, HTN, hyperlipidemia, CKD, urinary retention with chronic gee, AAA repair, colon polyp with prior high grade dysplasia on cecal polyp in
past, presents to ER 05/20 with weakness and abdominal pain. On admission noted with bili 3.1, AST 336, ALT 2000, alk phos 192 lipase 230 with slight improvement after admission and prior normal LFT's in February. CT on admission with
diverticulosis, aortobiiliac with excluded sac suspected type II leak as noted prior, renal lesion, cholelithiasis, and gee.
In review with patient and family no hx prior abdominal pain. Pain began on Sunday with severe weakness and persisted til admission. Pt not states pain is improved. Pt states pain was in upper abdomen and would come and go. Unsure of what
made pain worse or better. + wt loss 48 lbs since 2019 and 15 lbs since last year. Pt also admits to ongoing dysphagia over last year with liquid and solids without prior work up. He denies nausea, vomiting, hematemesis, diarrhea, constipation
or rectal bleeding. No hx EGD. No NSAID use.
Past Medical History
Past Medical History: Arrhythmias (afib on Eliquis, VT), CAD, Cancer (basal cell CA), CHF, COPD, HTN, Hypercholesterolemia, CO, Renal Failure (CKD stage 3Am) and Other (BPH, ischemic CM, urinary retention with chronic gee catheter, colon polyp
with hx cecal polyp with high grade dysplasia )
Past Surgical History: Cardiac (prior cath , ICD) and Other (TURBT, pacer, AAA repair, sinus surgery, mohs surgery, cataract surgery. eye surgery )
Social History
Tobacco: Former Smoker
Alcohol: None
Personal: Single
Living: With Family
Employment: Retired
Family History
Family History: Other (no family hx colon hx or GI problems)
Allergies / Home Medications
Allergy/AdvReac Type Severity Reaction Status Date / Time
Sulfa (Sulfonamide Allergy Nausea Verified 05/20/25 17:35
Antibiotics)
�Medication �Instructions �Recorded
ascorbic acid (vitamin C) 500 mg 500 mg PO DAILY Supplement 03/07/18
tablet (Vitamin C)
dutasteride 0.5 mg capsule 0.5 mg PO DAILY Urinary Issue 03/07/18
simvastatin 40 mg tablet 40 mg PO QPM ##30 04/05/18
echinacea 400 mg capsule 400 mg PO DAILY Supplement 06/22/23
furosemide 40 mg tablet 40 mg PO DAILY #30 tabs 06/25/23
polyethylene glycol 3350 17 gram 17 g PO DAILY Gastrointestinal 07/02/24
oral powder packet (Miralax) Issue
apixaban 2.5 mg tablet (Eliquis) 2.5 mg PO BID Blood Clot 07/10/24
Prevention/Tx
Lactobac no.2-Bifidobac no.1-S. 1 cap PO QPM Gastrointestinal Issue 05/20/25
thermo 112.5 billion cell capsule
(Visbiome)
acetaminophen 500 mg tablet 500 - 1,000 mg PO DAILYPRN PRN 05/20/25
(Tylenol Extra Strength) mild pain
albuterol sulfate 90 mcg/actuation 2 puff inhalation R TIDPRN PRN sob 05/20/25
aerosol inhaler
dofetilide 250 mcg capsule 250 mcg PO BID Heart 05/20/25
Disease/Condition
ipratropium 0.5 mg-albuterol 3 mg 3 ml inhalation R TID 05/20/25
(2.5 mg base)/3 mL nebulization Lung/Breathing Issues
soln
metoprolol succinate 25 mg 25 mg PO QPM Blood Pressure 05/20/25
tablet,extended release 24 hr
peg 400-propylene glycol (PF) 0.4 1 drp BOTH EYES DAILY Eye Condition 05/20/25
%-0.3 % eye drops in a dropperette
(Systane (PF))
Review of Systems
-
History Source: Patient
Constitutional: Reports Weight Loss and Fatigue
EENT: Reports No Symptoms
Respiratory: Reports No Symptoms
Cardiac: Reports No Symptoms
Abdomen/GI: Reports Abdominal Pain
: Reports Other (chronic gee )
Musculoskeletal: Reports No Symptoms
Skin: Reports No Symptoms
Neurological: Reports Weakness
Endocrine: Reports No Symptoms
Hematologic/Lymphatic: Reports No Symptoms
Vital Signs
Temp Pulse Resp BP Pulse Ox
97.2 F 87 18 115/58 97
05/21/25 07:00 05/21/25 07:28 05/21/25 07:28 05/21/25 07:00 05/21/25 09:15
Physical Exam
Exam
General: No Apparent Distress and Other (thin appearing with cachexia )
HEENT: Normocephalic
Respiratory: Clear
Cardiac: Regular Rhythm
GI: Soft, Non Tender and Non Distended
Musculoskeletal: No Clubbing and No Cyanosis
Skin: Warm and Dry
Neuro: Awake and Alert
Psych: Calm
Results
WBC 8.8 10^3/uL (4.8-10.8) 05/21/25 06:49
Hgb 12.7 g/dL (13.0-18.0) L 05/21/25 06:49
Hct 38.5 % (39.0-52.0) L 05/21/25 06:49
MCV 96.7 fL (80.0-94.0) H 05/21/25 06:49
Plt Count 147 10^3/uL (130-400) 05/21/25 06:49
Absolute Neuts (auto) 7.5 10^3/uL (1.4-6.5) H 05/21/25 06:49
Sodium 139 mmol/L (135-145) 05/21/25 06:49
Potassium 4.5 mmol/L (3.5-5.1) 05/21/25 06:49
Chloride 101 mmol/L (98-107) 05/21/25 06:49
Carbon Dioxide 35 mmol/L (22-30) H 05/21/25 06:49
BUN 32 mg/dl (9-20) H 05/21/25 06:49
Creatinine 1.0 mg/dL (0.7-1.3) 05/21/25 06:49
Calcium 8.5 mg/dl (8.4-10.2) 05/21/25 06:49
Total Bilirubin 1.7 mg/dl (0.2-1.3) H D 05/21/25 06:49
AST 171 U/L (17-59) H 05/21/25 06:49
ALT 144 U/L (0-50) H 05/21/25 06:49
Alkaline Phosphatase 183 U/L (38-126) H 05/21/25 06:49
Lipase 230 U/L (23-300) 05/20/25 09:06
Diagnostic Image Results:
05/21 US pending
05/20 CT with IV and oral contrast
Sigmoid diverticulosis. No intestinal obstruction or free air.
Aortobiiliac stent graft is again seen with excluded sac similar in size to most recent prior CT. Suspected Type II endoleak seen on prior angiographic CT study August 19, 2024 cannot be assessed on this non-angiographic study.
Simple left renal cysts.
Subcentimeter low-attenuation right renal lesion too small to characterize.
Cholelithiasis again suspected.
Gee catheter within urinary bladder with a few expected tiny bubbles of air.
08/2024 UGI
Gastroesophageal reflux to the level of the thoracic inlet
Prior GI Procedures:
EGD: none
Colonoscopy: 02/2011 [facility] - Preparation of the colon was fair.
- The examined portion of the ileum was normal.
- Scar cecum.
- Diverticulosis sigmoid colon, descending colon and
transverse colon.
- Non-bleeding external hemorrhoids.
- Rectal exam revealed enlarged prostate.
- A single non-bleeding colonic angioectasia.
- Venous blebs scattered in colon.
Assessment / Plan
-
Pt is an 89yo presents with afib on Eliquis, CAD, ischemic CM hx Vtach with ICD/pacer, prior CO, CHF, COPD, HTN, hyperlipidemia, CKD, urinary retention with chronic gee, AAA repair, colon polyp with prior high grade dysplasia on cecal polyp in
past, CBD dilation, panc cyst, presents to ER 05/20 with weakness and abdominal pain. On admission noted with bili 3.1, AST 336, ALT 2000, alk phos 192 lipase 230 with slight improvement after admission and prior normal LFT's in February. Last
colonoscopy 2010. No hx EGD. No NSAID use. CT on admission with diverticulosis, aortobiiliac with excluded sac suspected type II leak as noted prior, renal lesion, cholelithiasis, and gee.
-epigastric abdominal pain
-increased LFT's
-CBD dilation on prior US 09/2024
-wt loss 48 lb since 2019 and 15lb since last year
-dysphagia
other med problems:
-afib on Eliquis
-CAD
- ischemic C
- hx Vtach with ICD/pacer,
- prior CO
- CHF
-COPD
-HTN
- hyperlipidemia
-CKD
-urinary retention with chronic gee
- AAA repair,
-colon polyp with prior high grade dysplasia on cecal polyp last colon 2010
-hx panc cyst per prior imaging
PLAN:
etiology of symptoms related to biliary etiology ? passed stone vs other- pt with chronic gee and abnormal UA UTI also in differential
pt also with noted prior CBD dilation and panc cyst
CT as noted, US pending
pain now resolved and feeling better
to trial diet for lunch if recurrent pain or rise in LFT's may need to consider EUS as likely cannot have MRI with old pacer
pt currently on Eliquis- had dose this AM
trend LFT's
OP work up for dysphagia
family updated
-
-
Thank you for consultation and allowing me to participate in the patient's care. Please call the recycling collections driver GI physician during the after hours with any questions or concerns.
--- NOTE | 2025-05-21 17:12 | PTCARENOTE ---
Pt had a 12 beat run of Vtach, made aware, Vitals obtained and EKG done. EKG shows a-fib with RVR. made aware
--- NOTE | 2025-05-21 17:26 | W.PN.HOSP.TC ---
Addendum entered and electronically signed by Ricardo Arzate MD 05/21/25 20:12:
Attending Addendum-I saw and evaluated the patient. I reviewed the resident�s note and agree with findings and plan as documented in the resident�s note. Sub: Currently feels improved. Has more energy today. Denies nausea / vomiting. Denies fevers
chills urinary sxs diarrhea. Full 12 point ROS reviewed and negative except as documented Exam- vitals reviewed in EMR GEN-cachectic appearing heart RRR no MRG Lungs- fine crackles at bases abd soft ND ND pos BS no rebound guarding LE no edema Skin
dry Neuro AAO x 3 with concentrated urine present
Plan:
# Weight Loss/PCM
- unclear etiology
- concerning for malignancy
- encourage PO
- hold lasix
- appreciate GI input- for OP eval with possible EUS
# Transaminitis
- Abd CT-Sigmoid diverticulosis. No intestinal obstruction or free air.
-Aortoiliac stent graft is again seen with excluded sac similar in size to most recent prior CT. Suspected Type II endoleak seen on prior angiographic CT study August 19, 2024 cannot be assessed
-Simple left renal cysts.
-Subcentimeter low-attenuation right renal lesion too small to characterize.
-Cholelithiasis
- improved
- RUQ US 7/- cholelithiasis but no evidence of acute cholecystitis. Common bile duct is dilated
- possibly due to passed stone
- appreciate GI input
- repeat CMP in am
#Chronic Hypercarbic Hypoxemic Respiratory Failure/COPD
- not in AE
- @ baseline 02 requirement
- cont nebs
- cont to monitor
#Dehydration
- hold lasix
- concentrated urine
- gentle IVF for now
- repeat BMP in am
#PAD
- h/o infra renal aortoiliac stent
# HFrEF
- not in AE, has ICD
- echo 06/2023- ef @ 22%
- hold lasix
- strict I and O daily weights
-
# Paroxysmal A fib
- cont Eliquis dofetilide and metoprolol
- has pacer
- monitor on tele
# Dysphagia
- speech eval
# CKD 3a
- avoid nephrotoxic agents
- follow BMP
# Urinary retention from BPH
- cont Katz care
- asymptomatic bacteruria - likely Katz contaminated specimen
- hold off on abx
# HLD
- hold simvastatin
CODE- DNR
DVT-p- eliquis
Dispo DC in am home
Time spent coordinating care, review of plan of care with resident, personally reviewed records in EMR, med rec, consults, notes, labs, radiology, d/w nursing � 52 mins
Original Note:
Today's Communication/Plan
-
Continue the current medication
Assessment / Plan
Assessment / Plan
# # Urinary Incontinence:
# Katz catheter+
# Asymptomatic UTI
# Urine Leukocyte Esterase +
#Urine WBC reflex >100 +
# Urine Bacteria reflex> moderate positive
# Cardiomyopathy:
Left Ventricular EF:20-25% ECHO done on 09/26/2019
Hold Lasix 40 mg today
# Afib:
Continue Dofetilide 250 mcg BID
Continue Eliquis 2.5 mg, Metoprolol 25 mg, Simvastatin 40mg
# SIgnificant weight loss:
Normal Saline IV infusion started 60ml/hr (500ml infusion) today
PT/OT Consult taken
# BPH:
Continue Dutasteride 0.5mg
#gastro consulted:
-f/u Abdominal US, given improvement in LFTs, suspect he passed a stone
-Depending on ultimate goals of care given his age and comorbidities, would recommend follow-up with Dr. Pearce to discuss outpatient EUS for pancreatic cyst/can assess CBD for evidence of sludge/stones.
Around 5.10PM, His Heart Rate- 113, BP-118/73
SaO2- 98% with 2L Nasal Cannula
He is asymptomatic.
Anticipated Discharge: Within 24 hours
Subjective/Interval History
-
Date of Service: May 21, 2025
89 yrs M hasd no concerns for palpitation, chest pain, dyspnea today morning.
Objective Data
-
Labs:
Laboratory Results
05/21/25
06:49
WBC 8.8
Hgb 12.7 L
Hct 38.5 L
Plt Count 147
Sodium 139
Potassium 4.5
Chloride 101
Carbon Dioxide 35 H
BUN 32 H
Creatinine 1.0
Glucose 78
Calcium 8.5
Total Bilirubin 1.7 H D
AST 171 H
ALT 144 H
Alkaline Phosphatase 183 H
Vital Signs:
Vital Signs
Temp Pulse Resp BP Pulse Ox
97.7 F 112 20 118/73 98
05/21/25 17:13 05/21/25 17:13 05/21/25 17:13 05/21/25 17:13 05/21/25 17:13
I&O
05/20/25 05/21/25 05/22/25
06:59 06:59 06:59
Intake Total 0 / 0 440 / 440
Output Total 1125 / 1125 300 / 300
Balance -1125 / -1125 140 / 140
Review of Systems
-
History Source: Patient
All other systems: Reviewed and negative
EENT: Reports No Symptoms Reported
Endocrine: Reports No Symptoms
Physical Exam
-
General: No Apparent Distress
Respiratory: Clear to Auscultation
Cardiac: Regular Rhythm and S1/S2
GI: Soft and Nontender
Genito-urinary: No Costovertebral Tender
Musculoskeletal: No Clubbing
Skin: Warm
Neuro: Awake
Psych: Calm
[2025-05-21] MEDS: TOPROL XL 25 MG PO (17:58)
[2025-05-21] MEDS: NSS 500 IV (18:12)
[2025-05-22 03:18] VITALS: BP 113/60
[2025-05-22 07:13] LABS: Hematocrit 38.5 % (39.0-52.0); Hemoglobin 12.5 g/dL (13.0-18.0); Mean Corp Hgb Conc. 32.5 g/dL (33.0-37.0); Mean Corpuscular Volume 97.0 fL (80.0-94.0); Nucleated Red Blood Cells % 0 % (-); Platelet Count 164 10^3/uL (130-400); Red Cell Dist. Width 12.3 % (11.5-14.5)
[2025-05-22 07:47] LABS: ALT (SGPT) 127 U/L (0-50); AST (SGOT) 113 U/L (17-59); Albumin 3.2 g/dl (3.5-5.0); Alkaline Phosphatase 171 U/L (38-126); Blood Urea Nitrogen 34 mg/dl (9-20); Calcium 8.6 mg/dl (8.4-10.2); Carbon Dioxide 36 mmol/L (22-30); Chloride 103 mmol/L (98-107); Estimated Creatinine Clearance 38 ml/min; Glucose 82 mg/dl (70-99); Potassium 4.5 mmol/L (3.5-5.1); Sodium 141 mmol/L (135-145); Total Protein 7.2 g/dl (6.3-8.2); eGFR > 60.00
[2025-05-22] MEDS: DUONEB 3 ML INH ×2 (07:53→13:23)
[2025-05-22 07:55] VITALS: BP 115/55
--- NOTE | 2025-05-22 09:32 | W.PN.GI.CBS2 ---
Today's Communication / Plan
-
etiology of symptoms related to biliary etiology ? passed stone, panc cyst/CBD dilation related vs other- less likely urinary issue as improved off abx
CT/US as noted - cyst not seen in US and CT
pain remains pain free after several meals
LFT's trending down
per pt cannot have MRI with old pacer
cont Eliquis
discussed with family etiology of pain and LFT elevation/wt loss unclear-- discussed option of EUS as MRI not option but given age and multiple med problems best to review with dr. Pearce in office
there is opening 05/25 at 8:45am with Dr. Pearce -- pt and family agreeable to proceed with appt to discuss if should proceed with EUS
updated medical staff
all questions answered will sign off call with questions
Assessment / Plan
-
Pt is an 89yo presents with afib on Eliquis, CAD, ischemic CM hx Vtach with ICD/pacer, prior VA, CHF, COPD, HTN, hyperlipidemia, CKD, urinary retention with chronic gee, AAA repair, colon polyp with prior high grade dysplasia on cecal polyp in
past, CBD dilation, panc cyst, presents to ER 05/20 with weakness and abdominal pain. On admission noted with bili 3.1, AST 336, ALT 2000, alk phos 192 lipase 230 with slight improvement after admission and prior normal LFT's in February. Last
colonoscopy 2010. No hx EGD. No NSAID use. CT on admission with diverticulosis, aortobiiliac with excluded sac suspected type II leak as noted prior, renal lesion, cholelithiasis, and gee. 05/21- US abd-There is cholelithiasis but no evidence
of acute cholecystitis. Common bile duct is dilated, also seen previously There are left renal cysts Cyst in the head of the pancreas seen previously is not identified on today's study due to technical limitations in evaluating the pancreas
-epigastric abdominal pain
-increased LFT's
-CBD dilation on prior US 09/2024
-hx 1.4 cm panc cyst per prior imaging 2023 with MRI recommended
-wt loss 48 lb since 2019 and 15lb since last year
-dysphagia
-hx AAA with prior noted type II leak
other med problems:
-afib on Eliquis
-CAD
- ischemic C
- hx Vtach with ICD/pacer,
- prior VA
- CHF
-COPD
-HTN
- hyperlipidemia
-CKD
-urinary retention with chronic gee
-colon polyp with prior high grade dysplasia on cecal polyp last colon 2010
PLAN:
etiology of symptoms related to biliary etiology ? passed stone, panc cyst/CBD dilation related vs other- less likely urinary issue as improved off abx
CT/US as noted - cyst not seen in US and CT
pain remains pain free after several meals
LFT's trending down
per pt cannot have MRI with old pacer
cont Eliquis
discussed with family etiology of pain and LFT elevation/wt loss unclear-- discussed option of EUS as MRI not option but given age and multiple med problems best to review with dr. Pearce in office
there is opening 05/25 at 8:45am with Dr. Pearce -- pt and family agreeable to proceed with appt to discuss if should proceed with EUS
updated medical staff
all questions answered
Subjective
Subjective
Date of Service: May 22, 2025
05/21 brown stool, tolerating diet, no recurrent pain and feeling well
Objective
Data Reviewed
Laboratory Data:
Laboratory Results
05/22/25 05:50
05/22/25 05:50
Laboratory Results
Total Bilirubin 1.1 mg/dl (0.2-1.3) 05/22/25 05:50
AST 113 U/L (17-59) H 05/22/25 05:50
ALT 127 U/L (0-50) H 05/22/25 05:50
Alkaline Phosphatase 171 U/L (38-126) H 05/22/25 05:50
Lipase 230 U/L (23-300) 05/20/25 09:06
Vital Signs and I&O:
Vital Signs
Temp Pulse Resp BP Pulse Ox
98.0 F 86 16 115/55 97
05/22/25 07:55 05/22/25 07:57 05/22/25 07:57 05/22/25 07:55 05/22/25 07:57
I&O
05/21/25 05/22/25 05/23/25
06:59 06:59 06:59
Intake Total 0 / 0 680 / 680
Output Total 1125 / 1125 600 / 600
Balance -1125 / -1125 80 / 80
Physical Exam
Physical Exam
HEENT: Anicteric, Moist mucous membranes and Other (thin appearing )
Cardiology: Normal Sinus Rhythm
Pulmonary: Other (decreased )
GI: Soft, Non Distended and Non Tender
Extremities: No Edema
Neuro: Non Focal
[2025-05-22] MEDS: TIKOSYN 250 MCG PO (10:38)
[2025-05-22] MEDS: PROSCAR 5 MG PO (10:38)
[2025-05-22] MEDS: ELIQUIS 2.5 MG PO (10:38)
[2025-05-22] MEDS: REFRESH EYE DROPS (PF) 1 DROPS BOTH EYES (10:38)
[2025-05-22] MEDS: FLUSH (NSS) 1 FLUSH IV (10:39)
[2025-05-22 11:19] VITALS: BP 111/52
--- NOTE | 2025-05-22 13:59 | W.PN.HOSP.TC ---
Addendum entered and electronically signed by Ricardo Arzate MD 05/22/25 22:31:
Attending Addendum-I saw and evaluated the patient. I reviewed the resident�s note and agree with findings and plan as documented in the resident�s note. Sub: 'I feel great doc! My appetite is back!' Seen with . Requesting to go home. Denies
nausea / vomiting abd pain fevers chills urinary sxs diarrhea. Full 12 point ROS reviewed and negative except as documented Exam- vitals reviewed in EMR GEN-cachectic appearing heart RRR no MRG Lungs- fine crackles at bases abd soft ND ND pos BS no
rebound guarding LE no edema Skin dry Neuro AAO x 3 with yellow urine present
Plan:
# Weight Loss/PCM
- unclear etiology
- concerning for malignancy
- encourage PO
- restart lasix TTS
- appreciate GI input- for OP eval with possible EUS - appt set Dr. Pearce
# Transaminitis
- Abd CT-Sigmoid diverticulosis. No intestinal obstruction or free air.
-Aortoiliac stent graft is again seen with excluded sac similar in size to most recent prior CT. Suspected Type II endoleak seen on prior angiographic CT study August 19, 2024 cannot be assessed
-Simple left renal cysts.
-Subcentimeter low-attenuation right renal lesion too small to characterize.
-Cholelithiasis
- improving
- RUQ US 7/2- cholelithiasis but no evidence of acute cholecystitis. Common bile duct is dilated
- likely due to passed stone
- appreciate GI input
- repeat CMP as OP
- OP f/u GI
#Chronic Hypercarbic Hypoxemic Respiratory Failure/COPD
- not in AE
- @ baseline 02 requirement
- cont nebs
- cont to monitor
#Dehydration
- resolved s/p IVF
- change lasix to TTS
- gentle IVF for now
- repeat BMP as OP
#PAD
- h/o infra renal aortoiliac stent
# HFrEF
- not in AE, has ICD
- echo 06/2023- ef @ 22%
- lasix held
- strict I and O daily weights
-
# Paroxysmal A fib
- cont Eliquis dofetilide and metoprolol
- has pacer
- monitor on tele
# Dysphagia
- speech eval as OP
# CKD 3a
- avoid nephrotoxic agents
- follow BMP
# Urinary retention from BPH
- cont Katz care
- asymptomatic bacteruria - likely Katz contaminated specimen
- hold off on abx
# HLD
- hold simvastatin
CODE- DNR
DVT-p- eliquis
Dispo DC in home
Time spent coordinating care, DC planning, review of DC plan of care with resident, transition of care, review of records, med rec/scripts sent electronically, consults, notes, d/w consultants, nursing, family, and CM� 32 mins >50% of this time was
devoted to counseling and coordination of care
Original Note:
Today's Communication/Plan
-
Discharge today:
-Gastro consult for future
-GIT consult with Dr. Pearce to discuss outpatient EUS for pancreatic cyst/can assess CBD for evidence of sludge/stones. - if there is opening 05/25 at 8:45am with Dr. Pearce -- pt and family agreeable to proceed with appt to discuss if should proceed with
EUS.
- Take Lasix 40mg Every SUNDAY, SUNDAY and SUNDAY (only three days per week). Continue until otherwise directed by Primary Care Physician or Band Saw Operator Cake Cutting.
STOP taking Echinacea until seen by PCP or GI for concerns of elevated Liver Enzymes.
Assessment / Plan
Assessment / Plan
# Cardiomyopathy:
Left Ventricular EF:20-25% ECHO done on 09/26/2019
Hold Lasix 40 mg today
# Afib:
Continue Dofetilide 250 mcg BID
Continue Eliquis 2.5 mg, Metoprolol 25 mg, Simvastatin 40mg
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
# SIgnificant weight loss:
Normal Saline IV infusion started 60ml/hr (500ml infusion) today
PT/OT Consult taken
# # Urinary Incontinence:
# Katz catheter+
# Asymptomatic UTI
# Urine Leukocyte Esterase +
#Urine WBC reflex >100 +
# Urine Bacteria reflex> moderate positive
# BPH:
Continue Dutasteride 0.5mg
Discharged today with follow up Gastrologist
#gastro consulted:
-f/u Abdominal US, given improvement in LFTs, suspect he passed a stone
-Depending on ultimate goals of care given his age and comorbidities, would recommend follow-up with Dr. Pearce to discuss outpatient EUS for pancreatic cyst/can assess CBD for evidence of sludge/stones.
#if there is opening 05/25 at 8:45am with Dr. Pearce -- pt and family agreeable to proceed with appt to discuss if should proceed with EUS
updated medical staff
Anticipated Discharge: Today
Subjective/Interval History
-
Date of Service: May 22, 2025
Today patient has no concerns for nausea, abdominal pain, palpitation with the past h/o HFrEF, BPH, Urinary retention, Hyperlipidemia.
Objective Data
-
Labs:
05/22/25 05:50
05/22/25 05:50
Laboratory Results
Total Bilirubin 1.1 mg/dl (0.2-1.3) 05/22/25 05:50
AST 113 U/L (17-59) H 05/22/25 05:50
ALT 127 U/L (0-50) H 05/22/25 05:50
Alkaline Phosphatase 171 U/L (38-126) H 05/22/25 05:50
Lipase 230 U/L (23-300) 05/20/25 09:06
Laboratory Results
05/22/25
05:50
WBC 6.3
Hgb 12.5 L
Hct 38.5 L
Plt Count 164
Sodium 141
Potassium 4.5
Chloride 103
Carbon Dioxide 36 H
BUN 34 H
Creatinine 1.0
Glucose 82
Calcium 8.6
Total Bilirubin 1.1
AST 113 H
ALT 127 H
Alkaline Phosphatase 171 H
Vital Signs:
Vital Signs
Temp Pulse Resp BP Pulse Ox
98.1 F 84 16 111/52 92
05/22/25 11:19 05/22/25 13:26 05/22/25 13:26 05/22/25 11:19 05/22/25 13:26
I&O
05/21/25 05/22/25 05/23/25
06:59 06:59 06:59
Intake Total 0 / 0 680 / 680
Output Total 1125 / 1125 600 / 600
Balance -1125 / -1125 80 / 80
Review of Systems
-
History Source: Patient
All other systems: Reviewed and negative
Respiratory: Reports No Symptoms
Cardiac: Reports No Symptoms
Abdomen/GI: Reports No Symptoms
Genitourinary: Reports No Symptoms
Musculoskeletal: Reports No Symptoms
Skin: Reports No Symptoms
Neuro: Reports No Symptoms
Hematologic / Lymphatic: Reports No Symptoms
Allergy / Immunology: Reports No Symptoms
Physical Exam
-
General: Well Developed
HEENT: Moist Mucous Membranes
Cardiac: Regular Rhythm and S1/S2
GI: Soft and Nontender
Genito-urinary: No Costovertebral Tender
Musculoskeletal: No Clubbing and No Cyanosis
Skin: Warm
Neuro: Awake
Hematologic / Lymphatic: No Lymphadenopathy
Psych: Calm
--- NOTE | 2025-05-22 15:14 | CM ---
CM following re: d/c planning.
CM completed IA.
Pt resides with family in private home.
Pt independent with mobility and ADLs.
No current VN or DME.
PCP is Dr. Wallace and [facility] in [place].
No d/c needs anticipated.
Family transport home.
[2025-05-22 15:50] VITALS: BP 118/55
--- NOTE | 2025-05-23 21:55 | W.DCSUMMARY ---
Addendum entered and electronically signed by Ricardo Arzate MD 05/25/25 19:27:
Read, reviewed, and agree. See same day progress note for additional details. Patient has diagnosis of severe protein calorie malnutrition.
Cesario Arzate MD
Original Note:
Documented by User: Efra Dickerson MD, Resident 05/23/25 22:48
Discharge Summary
Discharge Data
Date of Admission: 05/20/25
Date of Discharge: 05/22/25
Total time spent discharging patient (in min): 20
-
Pending Results: No
Hospital Course
Discharging Physician : Dr Jennifer Dickerson
Dr Ricardo Arzate
Disposition : Home
Primary care physician : Dr Kelli Wallace
Principal Discharge diagnosis : Weight Loss with unclear etiology with malignancy concerns.
Chronic Discharge diagnosis :
#Chronic Hypercarbic Hypoxemic Respiratory Failure/COPD @ baseline 02 requirement, cont nebs.
# HFrEF
not in AE, has ICD, echo 06/2023- ef @ 22%. lasix held with strict I and O daily weights
# Paroxysmal A fib
medications was continued with Eliquis dofetilide and metoprolol and patient had pacemaker was monitored on tele.
# Dysphagia speech evaluation was arranged at OP
# CKD 3a and nephrotoxic agents avoided.BMP was followed at the course of hospitalization.
# Urinary retention from BPH with Katz care continued
#asymptomatic bacteruria likely Katz contaminated specimen
Hospital Course : On 05/20 89-yr male arrived to ER with abdominal pain decreased appetite intermittent nausea and weakness, with past medical history of COPD on home O2 at night, afib , CM , CHF, hypertension, hyperlipidemia,FL pacemaker chronic
kidney disease with chronic indwelling Katz, endovascular repair of infrarenal abdominal aortic aneurysm (06/2024). He reported abdominal pain started the previous night with bowel movements. He reported urinating and emptying his Katz normally and
pain was mostly in his lower abdomen with intermittent in nature and he was losing his weight ever since aneurysm repair.
LFTs on admission:
Tbili 3.1 --> 1.7
AST 336 --> 171
ALT 200 --> 144
Alk phos 192 --> 183
(LFTs 02/25/25: Tbili 0.9, AST 34, ALT 19, Alk phos 78)
While on hospital course dehydration was resolved s/p IV Fluids.Gastro consulted with given improvement in LFTs, suspect he passed a stone. Continue the home medications with Furasemide 40mg tablet dosage altered from Sunday, and Sunday.
Discharge follow up:
Depending on ultimate goals of care given his age and comorbidities, would recommend follow-up with Dr. Pearce to discuss outpatient EUS for pancreatic cyst/can assess CBD for evidence of sludge/stones at 05/25 at 8:45am with Dr. Pearce for the future
follow up.
Important imaging findings :
05/21- US abd-There was cholelithiasis with Common bile duct dilation, also seen previously. There were left renal cysts, Cyst in the head of the pancreas seen previously was not identified on the day of the study due to technical limitations in
evaluating the pancreas.
05/[address]-Sigmoid diverticulosis. No intestinal obstruction or free air. Aortoiliac stent graft is again seen with excluded sac similar in size to most recent prior CT. Suspected Type II endoleak seen on prior angiographic CT study August 19,
2023 cannot be assessed.
CODE: DNR
Procedure findings : Nil
Discharge Plan
-
Patient Disposition: Home (Routine Discharge)
Discharge Diagnosis/Procedures: Weight Loss/PCM, Hyperbilirubinemia, Transaminitis
Condition: Fair
Diet: No restrictions
Additional Diets: <2g Sodium per day
Activity: As tolerated
Driving Restrictions: As prior to admission
Bathing Restrictions: None
Specialty Instructions: Weigh Daily- Call MD for wt gain/loss 3 lbs overnight/5 lbs in 1 week
Referrals:
Geovany Pearce MD [Active, Gastroenterology] - 05/25/25 8:45 am
Referral Note: please arrive at 8:30 for 8:45 am appt to review with Dr. Pearce panc cyst and need for EUS.
Kelli Wallace MD [Family Provider, [facility]]
Referral Note: WITHIN 1 WEEK
Additional Discharge Medication Instructions: MEDICATION CHANGES:
Take Lasix 40mg Every SUNDAY, SUNDAY and SUNDAY (only three days per week). Continue until otherwise directed by Primary Care Physician or Oyster Culler.
STOP taking Echinacea until seen by PCP or GI for concerns of elevated Liver Enzymes.
Prescriptions:
New
furosemide [Lasix] 40 mg tablet
40 mg PO Q OTHER DAY 90 Days Qty: 45 5RF
Rx Instructions:
Take one 40mg Tablet Sunday, and Sunday
Continued
dutasteride 0.5 MG capsule
0.5 mg PO DAILY
ascorbic acid (vitamin C) [Vitamin C] 500 MG tablet
500 mg PO DAILY
simvastatin 40 MG tablet
40 mg PO QPM Qty: 30 5RF
polyethylene glycol 3350 [Miralax] 17 gram Powder In Packet
17 g PO DAILY
Eliquis 2.5 mg tablet
2.5 mg PO BID
ipratropium-albuterol 0.5 mg-3 mg(2.5 mg base)/3 mL Solution For Nebulization
3 ml INHALATION R TID
acetaminophen [Tylenol Extra Strength] 500 mg Tablet
500 - 1,000 mg PO DAILYPRN PRN (Reason: mild pain)
metoprolol succinate 25 mg Tablet Extended Release 24 Hr
25 mg PO QPM
albuterol sulfate 90 mcg/actuation Hfa Aerosol Inhaler
2 puff INHALATION R TIDPRN PRN (Reason: sob)
Systane (PF) 0.4-0.3 % Dropperette
1 drp BOTH EYES DAILY
Visbiome 112.5 billion cell Capsule
1 cap PO QPM
dofetilide 250 mcg capsule
250 mcg PO BID
Held
echinacea 400 mg Capsule
400 mg PO DAILY
Hold Instructions: Until seen by PCP for concern of Elevated Liver Enzymes
Discontinued
furosemide 40 mg tablet
40 mg PO DAILY Qty: 30 0RF
Discharge Orders:
Discharge Patient (As Directed); Ordered 05/22/25
Ordered By: Jose Beck
Discharge Date and Time
Discharge Date/Time: 05/22/25 15:54
Print Language: [place]

Documented by User: Ricardo Arzate MD 05/25/25 19:26
Discharge Summary
Discharge Data
Date of Admission: 05/20/25
Date of Discharge: 05/25/25
Discharge Plan
-
Patient Disposition: Home (Routine Discharge)
Discharge Diagnosis/Procedures: Weight Loss/PCM, Hyperbilirubinemia, Transaminitis
Condition: Fair
Diet: No restrictions
Additional Diets: <2g Sodium per day
Activity: As tolerated
Driving Restrictions: As prior to admission
Bathing Restrictions: None
Specialty Instructions: Weigh Daily- Call MD for wt gain/loss 3 lbs overnight/5 lbs in 1 week
Referrals:
Geovany Pearce MD [Active, Gastroenterology] - 05/25/25 8:45 am
Referral Note: please arrive at 8:30 for 8:45 am appt to review with Dr. Pearce panc cyst and need for EUS.
Kelli Wallace MD [Family Provider, Family Practice]
Referral Note: WITHIN 1 WEEK
Additional Discharge Medication Instructions: MEDICATION CHANGES:
Take Lasix 40mg Every SUNDAY, SUNDAY and SUNDAY (only three days per week). Continue until otherwise directed by Primary Care Physician or Oyster Culler.
STOP taking Echinacea until seen by PCP or GI for concerns of elevated Liver Enzymes.
Prescriptions:
New
furosemide [Lasix] 40 mg tablet
40 mg PO Q OTHER DAY 90 Days Qty: 45 5RF
Rx Instructions:
Take one 40mg Tablet Sunday, and Sunday
Continued
dutasteride 0.5 MG capsule
0.5 mg PO DAILY
ascorbic acid (vitamin C) [Vitamin C] 500 MG tablet
500 mg PO DAILY
simvastatin 40 MG tablet
40 mg PO QPM Qty: 30 5RF
polyethylene glycol 3350 [Miralax] 17 gram Powder In Packet
17 g PO DAILY
Eliquis 2.5 mg tablet
2.5 mg PO BID
ipratropium-albuterol 0.5 mg-3 mg(2.5 mg base)/3 mL Solution For Nebulization
3 ml INHALATION R TID
acetaminophen [Tylenol Extra Strength] 500 mg Tablet
500 - 1,000 mg PO DAILYPRN PRN (Reason: mild pain)
metoprolol succinate 25 mg Tablet Extended Release 24 Hr
25 mg PO QPM
albuterol sulfate 90 mcg/actuation Hfa Aerosol Inhaler
2 puff INHALATION R TIDPRN PRN (Reason: sob)
Systane (PF) 0.4-0.3 % Dropperette
1 drp BOTH EYES DAILY
Visbiome 112.5 billion cell Capsule
1 cap PO QPM
dofetilide 250 mcg capsule
250 mcg PO BID
Held
echinacea 400 mg Capsule
400 mg PO DAILY
Hold Instructions: Until seen by PCP for concern of Elevated Liver Enzymes
Discontinued
furosemide 40 mg tablet
40 mg PO DAILY Qty: 30 0RF
Discharge Orders:
Discharge Patient (As Directed); Ordered 05/22/25
Ordered By: Jose Beck
Discharge Date and Time
Discharge Date/Time: 05/22/25 15:54
Print Language: [place]
--- NOTE | 2025-05-25 15:25 | PN.CDI ---
CDI
- -
CDI:
Physician Documentation Request
Admit Date: 05/20/25 16:12
Dear Doctor Jayla,
Patient admitted with weight loss and transaminitis.
05/21 Nutrition note, 'Pt meets criteria for severe protein calorie malnutrition of chronic illness with prolonged poor intake prior to hospital admit <75% for >1 month, severe subcutaneous fat (orbital) and severe muscle loss (temporal, buccal,
clavicle). Pt is not interested in Ensure supplement at this time. thinks he may like to try vanilla fortified pudding BID.
Please provide in your note the diagnosis associated with the patient's nutritional status and your assessment:
Severe protein calorie malnutrition of chronic illness
Other (please specify)
[place] Criteria ([employer] Hospitalist 2017)
2 or more criteria must be present for either
non severe or severe malnutrition
Note that the criteria differs related to the
presence of an acute or chronic illness
Chronic Illness
Energy Intake Non Severe: <75% for >1 month
Severe: <75% for >1 month
Weight Loss Non Severe: 5% over 1 month
7.5% over 3 months
10% over 6 months
20% over 1 year
Severe: >5% over 1 month
>7.5% over 3 months
>10% over 6 months
>20% over 1 year
Body Fat Non Severe: Mild Loss
Severe: Severe Loss
Muscle Mass Non Severe: Mild Loss
Severe: Severe Loss
Fluid Accumulation Non Severe: Mild Accumulation
Severe: Moderate to severe
accumulation
Reduced Home [employer] Disclosure Act Specialist Strength Non Severe: N/A
Severe: Measurably reduced
Use of terms such as suspected, likely, concern for, or probable (associated with a specific diagnosis that is being evaluated, monitored, or treated as if it exists) are acceptable and can be coded in the inpatient setting, when documented at the
time of discharge.
Thank you,
Kat ANDRE,RN,CCDS
CDI Specialist
Available via [employer] text
Please use your independent medical judgment in providing your response.
== END 2025-05-22 15:54 | disposition home or self-care (01) | DRG 640 ==
LOC: 4 EAST ACU 16:12
PROVIDERS: Nurse Practitioner; ADMITTING PHYSICIAN Family Medicine; EMERGENCY PHYSICIAN Emergency Medicine; FAMILY PHYSICIAN Family Medicine; OTHER PHYSICIAN Internal Medicine
DX: R63.4 Abnormal weight loss (principal); E43 Unspecified severe protein-calorie malnutrition; Z68.1 Body mass index [BMI] 19.9 or less, adult; J96.12 Chronic respiratory failure with hypercapnia; J96.11 Chronic respiratory failure with hypoxia; I13.0 Hypertensive heart and chronic kidney disease with heart failure and stage 1 through stage 4 chronic kidney disease, or unspecified chronic kidney disease; I50.22 Chronic systolic (congestive) heart failure; N39.0 Urinary tract infection, site not specified; Z99.81 Dependence on supplemental oxygen; J44.9 Chronic obstructive pulmonary disease, unspecified; N18.31 Chronic kidney disease, stage 3a; E88.A Wasting disease (syndrome) due to underlying condition; I48.0 Paroxysmal atrial fibrillation; R13.10 Dysphagia, unspecified; R33.8 Other retention of urine; N40.1 Benign prostatic hyperplasia with lower urinary tract symptoms; E86.0 Dehydration; Z66 Do not resuscitate; K80.20 Calculus of gallbladder without cholecystitis without obstruction; N28.1 Cyst of kidney, acquired; I73.9 Peripheral vascular disease, unspecified; Z95.0 Presence of cardiac pacemaker; Z87.891 Personal history of nicotine dependence; Z88.2 Allergy status to sulfonamides; Z79.899 Other long term (current) drug therapy; Z79.01 Long term (current) use of anticoagulants; R32 Unspecified urinary incontinence; E78.00 Pure hypercholesterolemia, unspecified; I25.10 Atherosclerotic heart disease of native coronary artery without angina pectoris; I25.2 Old myocardial infarction; I25.5 Ischemic cardiomyopathy; Z86.0100 Personal history of colon polyps, unspecified; Z85.828 Personal history of other malignant neoplasm of skin
CPT/HCPCS: 74177; 76700; 80053; 81003; 81015; 83690; 85025; 87086; 93005; 94640; 96360; 99285; Q9967

== ENCOUNTER → 2025-06-19 11:21 | Outpatient (REF) | payer OTHER, SELFPAY ==
[2025-06-19 12:57] LABS: Hematocrit 44.5 % (39.0-52.0); Hemoglobin 13.8 g/dL (13.0-18.0); Mean Corp Hgb Conc. 31.0 g/dL (33.0-37.0); Mean Corpuscular Volume 100.5 fL (80.0-94.0); Nucleated Red Blood Cells % 0 % (-); Platelet Count 170 10^3/uL (130-400); Red Cell Dist. Width 12.6 % (11.5-14.5)
[2025-06-19 13:39] LABS: ALT (SGPT) 14 U/L (0-50); AST (SGOT) 27 U/L (17-59); Albumin 4.0 g/dl (3.5-5.0); Alkaline Phosphatase 91 U/L (38-126); Blood Urea Nitrogen 31 mg/dl (9-20); Calcium 9.0 mg/dl (8.4-10.2); Carbon Dioxide 33 mmol/L (22-30); Chloride 102 mmol/L (98-107); Glucose 96 mg/dl (70-99); Potassium 4.6 mmol/L (3.5-5.1); Sodium 142 mmol/L (135-145); Total Protein 9.4 g/dl (6.3-8.2); eGFR > 60.00
== END ==
LOC: REG 11:21
PROVIDERS: ATTENDING PHYSICIAN Family Medicine
DX: R63.4 Abnormal weight loss (principal); R79.89 Other specified abnormal findings of blood chemistry; E87.0 Hyperosmolality and hypernatremia
CPT/HCPCS: 36415; 80053; 85025

== ENCOUNTER → 2025-07-06 14:39 | Outpatient (REF) | payer OTHER, SELFPAY | LOC: RCS 14:39 | PROVIDERS: ATTENDING PHYSICIAN Nurse Practitioner; FAMILY PHYSICIAN Family Medicine | DX: R06.09 Other forms of dyspnea (principal) | CPT/HCPCS: 93306 ==

== ENCOUNTER → 2025-09-16 09:21 | Outpatient (REF) | payer OTHER, SELFPAY ==
[2025-09-16 09:53] LABS: Hematocrit 48.0 % (39.0-52.0); Hemoglobin 14.8 g/dL (13.0-18.0); Mean Corp Hgb Conc. 30.8 g/dL (33.0-37.0); Mean Corpuscular Volume 100.8 fL (80.0-94.0); Nucleated Red Blood Cells % 0 % (-); Platelet Count 185 10^3/uL (130-400); Red Cell Dist. Width 12.0 % (11.5-14.5)
[2025-09-16 10:20] LABS: ALT (SGPT) 17 U/L (0-50); AST (SGOT) 32 U/L (17-59); Albumin 4.1 g/dl (3.5-5.0); Alkaline Phosphatase 82 U/L (38-126); Blood Urea Nitrogen 29 mg/dl (9-20); Calcium 9.0 mg/dl (8.4-10.2); Carbon Dioxide 38 mmol/L (22-30); Chloride 100 mmol/L (98-107); Glucose 100 mg/dl (70-99); HDL Cholesterol 63 mg/dl; LDL Cholesterol, Calculated 66 mg/dl; Potassium 5.2 mmol/L (3.5-5.1); Sodium 143 mmol/L (135-145); Total Protein 9.1 g/dl (6.3-8.2); Very Low Density Lipoprotein 12 mg/dl (0-30); eGFR > 60.00
== END ==
LOC: REG 09:21
PROVIDERS: ATTENDING PHYSICIAN Family Medicine
DX: Z95.810 Presence of automatic (implantable) cardiac defibrillator (principal); I25.5 Ischemic cardiomyopathy; I25.10 Atherosclerotic heart disease of native coronary artery without angina pectoris; I10 Essential (primary) hypertension; E78.5 Hyperlipidemia, unspecified; N18.31 Chronic kidney disease, stage 3a
CPT/HCPCS: 36415; 80053; 80061; 85025

== ENCOUNTER → 2025-10-07 10:18 | Outpatient (REF) | payer OTHER, SELFPAY ==
[2025-10-07 11:19] LABS: Potassium 4.9 mmol/L (3.5-5.1)
== END ==
LOC: REG 10:18
PROVIDERS: ATTENDING PHYSICIAN Family Medicine
DX: E87.5 Hyperkalemia (principal)
CPT/HCPCS: 36415; 84132